=== PATIENT | female | born 1940 | race Caucasian/White ===

== ENCOUNTER 2016-09-30 15:36 | Inpatient (IN) | payer MEDICARE, MEDICAID ==
[~2016-09-30] VITALS: Ht 167.6 cm; Wt 66.0 kg
[~2016-09-30 15:36] MED LIST: CREST10T PO; HCTZ25 PO; INSU100C2 SQ; INSU100V5 SQ; NAP250 PO; POTA10TA PO; [UNRECOGNIZED DRUG - CODE] IV; [UNRECOGNIZED DRUG - CODE] IV
[2016-09-30 15:44] VITALS: BP 120/72; PULSE 110; RESP 20; O2SAT 97
--- NOTE | 2016-09-30 16:32 | ED.REPORT ---
HPI-General Illness Date of Service Sep 30, 2016 ED Provider: Chase Moctezuma MD This is a 76 year old female with a history of retroperitoneal B cell lymphoma sent to the emergency department from [facility] due to R leg weakness that began 2 weeks ago. Pt reports progressively worsening dysfunction of R leg. CT chest/abd/pelvis obtained today at [facility] demonstrated rapidly increasing size of malignant mass at left lower abdomen extending into the pelvis with mass effect on adjacent structures, thought to be impinging on "lumbar nerve" without tumor infiltration into spinal cord. Per Pt. she was thought to be in remission and stopped chemotherapy 4 months ago. Oncologist: Dr. Murillo. She has noticed increasingly large mass about the right lower abdomen over the last 2 months. She has not had any fecal or urinary incontinence. Nursing Notes Stated Complaint: CANT MOVE LEGS, SENT BY DOCTOR Chief Complaint: Extremity Trauma Nursing Notes Reviewed: Yes Allergies: Coded Allergies: erythromycin base (Verified Allergy, Intermediate, Nausea,Vomiting, ) quinine (Verified Allergy, Intermediate, syncope, 09/30/16) milk (Verified Allergy, Mild, congestion, 09/30/16) Scheduled Allopurinol (Allopurinol) 300 Mg Tablet 300 MG PO DAILY Citalopram (Citalopram) 10 Mg Tablet 10 MG PO DAILY Hydrochlorothiazide (Hydrochlorothiazide) 25 Mg Tablet 25 MG PO TIDWM 0830, 1200, 1600 TID confirmed w/ patient Insulin Glargine (Lantus U100 Insulin Vial) 100 Unit/Ml Vial 20 UNIT SUBQ DAILYWD 10 UNITS IN AM, 20 UNITS W/ DINNER (30 UNITS TOTAL) Insulin Glargine (Lantus U100 Insulin Vial) 100 Unit/Ml Vial 10 UNIT SUBQ QAM 10 UNITS IN AM, 20 UNITS W/ DINNER (30 UNITS TOTAL) Pantoprazole DR (Pantoprazole DR) 40 Mg Tablet.dr 40 MG PO QAM Rosuvastatin Calcium (Rosuvastatin Calcium) 10 Mg Tablet 10 MG PO HS Scheduled PRN Acetaminophen/Codeine 300-30mg (Acetaminophen/Codeine 300-30mg) 1 Each Tablet 1- 2 TABLET PO Q4H PRN PRN Pain Fluticasone Propionate (Flonase Allergy Relief) 50 Mcg/Actuation [place].susp 1 SPRAYS NS HS PRN PRN rhinorea Insulin Human Lispro (HumaLOG U100 Insulin Vial) 100 Unit/Ml Unit 2-8 UNIT SUBQ ACHS PRN PRN HYPERGLYCEMIA SLIDING SCALE Polyethylene Glycol 3350 (Miralax) 17 Gm Powd.pack 17 GM PO DAILY PRN PRN For Constipation General Time Seen by MD: 16:30 Chief Complaint Other Hx Obtained From: Patient Arrived By: Walk-in Sudden in Onset?: Yes Onset Occurred: More than a week ago... (2 weeks) Symptom Duration: Since onset Severity: Current: Moderate Pertinent Negative: Pt denies other symptoms Recent Healthcare: No recent doctor visit, No recent hospitalization Similar Sx Previous: No Past Medical History Past Medical History retroperitoneal B cell lymphoma Ambulatory Status Independent Review of Systems Full Review of Systems Constitutional: Denies: Chills, Fever Respiratory: Denies: Non-productive cough, Shortness of breath Cardiovascular: Denies: Chest pain Musculoskeletal: Reports: Extremity pain, Extremity swelling, Denies: Back pain, Neck pain Neurologic: Denies: Headache Complete sys rev & neg: except as marked. Physical Exam Vital Signs Vital Signs Date Time Temp Pulse Resp B/P Pulse Ox O2 Delivery O2 Flow Rate FiO2 09/30/16 17:55 36.4 88 14 112/71 95 Room Air 09/30/16 15:44 36.4 110 20 120/72 97 Room Air Initial VS: Reviewed Head / Eyes: Atraumatic, Normocephalic, PERRL ENT: Mucous membranes moist, Conjunctiva normal, No scleral icterus Neck: Supple, Non-tender, Full range of motion Cardiovascular: Regular rate & rhythm, Heart sounds normal, Intact distal pulses Skin: Warm, Dry, No cyanosis Neurologic: Alert, Oriented, Nonfocal Psychiatric: Mood/affect normal, Behavior normal, Normal thought content General/Constitutional: Awake, Alert Respiratory / Chest: Breath sounds NL, No respiratory distress, No rales, No rhonchi, No wheezing port in left anterior chest wall Abdomen: Non-tender large palpable solid abdominal mass occupying RUQ and RLQ Lower Extremity / Pelvis / MS: Vascular intact Significant weakness to flexion of R hip and flexion and extension of R knee. Dorsiflexion and plantar flexion are minimally reduced on R as compared to left Re-Eval/Medical Decision Med Decision/Clinical Course This is a 76 year old female with a history of retroperitoneal B cell lymphoma sent to the emergency department from [facility] due to R leg weakness that began 2 weeks ago. Pt reports progressively worsening dysfunction of R leg. CT chest/abd/pelvis obtained today at [facility] demonstrated rapidly increasing size of malignant mass at left lower abdomen extending into the pelvis with mass effect on adjacent structures, thought to be impinging on "lumbar nerve" without tumor infiltration into spinal cord. Per Pt. she was thought to be in remission and stopped chemotherapy 4 months ago. Oncologist: Dr. Murillo. She has noticed increasingly large mass about the right lower abdomen over the last 2 months. She has not had any fecal or urinary incontinence. Here in emergency department patient is afebrile stable vital signs and examination as above. Of note she has weakness in her right leg is neurovascularly intact otherwise. Given PRN zofran, dilauded, IV fluids Labs obtained earlier today at [facility]: Sodium 130 Potassium 3.2 Chloride 140 BUN 29 Creatinine 1.1 Calcium 13.4 Magnesium 1.6 Transaminases minimally elevated INR 1 WBC 10.6 Hct 29.2 I reviewed the patient's attending studies from earlier today [facility] confirming the above findings. Additionally had a long discussion with the oncologist on-call and reviewed the above findings. It is felt that the patient would benefit from palliative radiation to reduce mass effect on adjacent structures. The patient remained hemodynamically stable and in no apparent distress. She was admitted to the hospitalist service and consultation with oncology for further intervention and treatment. Consultation #1: Referral / Consult Name: Danny Timmons MD Consulted With: Hospitalist Call Returned at: 17:28 Landscaping Crew Leader: Accepts admit Consultation #2: Referral / Consult Name: Tapan Julio MD Call Returned at: 17:35 Landscaping Crew Leader: Agrees with eval, Agrees with plan Note: Oncologist Counseled Regarding: Diagnosis, Lab results, Need for follow-up, Need for admission Discharge & Departure Primary Impression: Hypercalcemia Additional Impressions: Mass of abdomen Abdominal location: unspecified location Qualified Code: R19.00 - Intra- abdominal and pelvic swelling, mass and lump, unspecified site Right leg weakness B-cell lymphoma B-cell lymphoma type: unspecified B-cell Lymphoma site: unspecified region Qualified Code: C85.10 - Unspecified B-cell lymphoma, unspecified site Disposition: ADMITTED TO HOSPITAL Discharge Condition All VS Reviewed: Yes Condition: Stable Referrals: Blaine Rizzo MD (PCP) Scribe Attestation Portions of this note were transcribed by Elvira Vincent. I, Dr. Moctezuma personally performed the history, physical exam and medical decision-making; I reviewed and confirmed the accuracy of the information in the transcribed note. Signed by: alannah Hernandez. 09/30/2016, 23:30. Chase Moctezuma MD Sep 30, 2016 16:32 ELVIRA VINCENT Sep 30, 2016 17:06
[2016-09-30] MEDS ORDERED: 0.9% Sodium Chloride 1,000 ML IV ONE (17:23)
[2016-09-30] MEDS ORDERED: HYDROmorphone 0.5 mg/0.5 mL iSecure Syringe IVPUSH PRN (17:25)
[2016-09-30] MEDS ORDERED: Ondansetron 2 mg/mL 2 mL Inj IVPUSH PRN ×2 (17:25→17:35)
[2016-09-30] MEDS ORDERED: Alum-Mag Hydrox-Simeth 30 mL Suspension PO PRN (17:35)
[2016-09-30 17:55] VITALS: BP 112/71; PULSE 88; RESP 14; O2SAT 95
[2016-09-30] MEDS ORDERED: HYDR25TA4 PO (17:58)
[2016-09-30] MEDS ORDERED: ALLO300T2 PO (17:58)
[2016-09-30] MEDS ORDERED: CITA10TA9 PO (17:58)
[2016-09-30 18:05] VITALS: BP 112/71; PULSE 88; RESP 14; O2SAT 95
[2016-09-30] MEDS ORDERED: INSU100V7 SUBQ ×2 (18:11)
[2016-09-30] MEDS ORDERED: PANT40TA3 PO (18:16)
[2016-09-30] MEDS ORDERED: ACET1TAB42 PO (18:19)
[2016-09-30] MEDS ORDERED: FLUT9.9S NS (18:19)
[2016-09-30] MEDS ORDERED: ROSU10TA24 PO (18:19)
[2016-09-30] MEDS ORDERED: INSLIS SUBQ (18:19)
[2016-09-30] MEDS ORDERED: POLY17PO6 PO (18:21)
[2016-09-30 18:23] VITALS: BP 149/71; PULSE 97; RESP 18; O2SAT 98
--- NOTE | 2016-09-30 18:26 | NUR ---
Admit Pt admitted to [facility] room 1012 at 1825 via stretcher. Pt was able to transfer to bed. Recommend using BSC with FWW instead of bathroom tonight d/t weakness. Pt denies pain. BRO. No chest pain. SOB. Right ankle swollen. Denies nausea. NS 100. RA. Oriented to room and call light. Care continues.
[2016-09-30] MEDS ORDERED: CITALOPRAM 10 MG PO SCH (19:40)
[2016-09-30] MEDS ORDERED: Fluticasone 0.05% 15 Spray/2 Gm 16 Gm Nasal Spray NASAL PRN (19:40)
[2016-09-30] MEDS ORDERED: Polyethylene Glycol (PEG) 17 Gm Powder PO PRN (19:40)
[2016-09-30 19:57] VITALS: BP 113/60; PULSE 97; RESP 18; O2SAT 98
[2016-09-30] MEDS ORDERED: Dexamethasone 10 mg/mL Inj IVPUSH ONE (20:00)
--- NOTE | 2016-09-30 20:20 | PCM.HPMED ---
Subjective Date of Service Sep 30, 2016 Primary Provider: Admitting Physician: Danny Timmons MD Primary Care Physician: Blaine Rizzo MD Attending Physician: Danny Timmons MD Chief Complaint: Lower extremity weakness, abdominal mass History of Present Illness: This is a 76 years old female with past medical history diabetes, hyperlipidemia, B-cell lymphoma diagnosed 2 years ago status post chemotherapy which completed 2 months ago. Patient said this morning she woke up and tried to walk to the bathroom and suddenly her LE gave up on her. She was taken to [facility] where a ct scan shows : rapidly increasing size of malignant mass at left lower abdomen extending into the pelvis with mass effect on adjacent structures, thought to be impinging on "lumbar nerve" with tumor infiltration into spinal cord. Patient was transported here and oncology was consulted by ER physician. Dr. Harrison received the patient in the morning for possible palliative radiation. Patient denied chest pain, shortness upper, fever chills, abdominal pain, nausea , vomiting. Allergies Coded Allergies: milk (Verified Allergy, Severe, congestion, 09/30/16) erythromycin base (Verified Allergy, Intermediate, Nausea,Vomiting, ) quinine (Verified Allergy, Intermediate, syncope, 01/18/13) Home Medications Hydrochlorothiazide-Expunged, Do Not Renew! (Hydrochlorothiazide-Expunged, Do Not Renew!) 25 Mg Tablet 25 MG PO BID perscribed tid, last filled 09/20 INSULIN LISPRO-Expunged Drug, Do Not Renew! (Humulog-Expunged Drug, Do Not Renew !) 100 Unit/1 Ml Vial 12 UNIT SQ TID Insulin Glargine-Expunged Drug, Do Not Renew! (Lantus-Expunged Drug, Do Not Renew!) 100 U/Ml Cartridge 80 U SQ BID Naproxen-Expunged Drug, Do Not Renew! (Naprosyn-Expunged Drug, Do Not Renew!) 250 Mg Tablet 250 MG PO PRN Piperacillin/Tazobactam Sod (Zosyn 3.375GM/50ML Premix) 3.375 Gm/50 Ml Soln 3.375 GM IV Q8 to continue for 6 weeks total Potassium Chl-Expunged Drug, Do Not Renew! (F-Kuu-Runbdpzf Drug, Do Not Renew!) 10 Meq Tablet.sa 10 MEQ PO DAILY Rosuvastatin-Expunged Drug, Do Not Renew! (Crestor-Expunged Drug, Do Not Renew! ) 10 Mg Tablet 10 MG PO DAILY VANCOMYCIN HCL-Expunged Drug, Do Not Renew! (VANCOMYCIN HCL-Expunged Drug, Do Not Renew!) 1,000 Mg Inj 1,250 MG IV Q24 to continue for 6 weeks total PMH retroperitoneal B cell lymphoma Surgical History None Family History Family history reviewed and is noncontributory to the present illness Social History Hx Alcohol Use: No Hx Substance Use: No Hx Tobacco Use: No Living Arrangement: with Family Exam Vital Signs Vital Sign - Last Date Time Temp Pulse Resp B/P Pulse Ox O2 Delivery O2 Flow Rate FiO2 09/30/16 18:23 36.4 97 18 149/71 98 Room Air Exam Gen./constitutional : Chronically appearing female, and the comfortably not in distress HEENT: Atraumatic, Normocephalic, PERRL, sclerae anicteric Mouth: Mucous membranes moist, no oral thrush Neck: Supple, Non-tender, Full range of motion, no cervical lymphadenopathy Chest: No chest wall tenderness, no deformity, normal respiratory efforts Lungs: Bilateral auscultation, no wheezing Cardiovascular: Regular rate & rhythm, Heart sounds normal, Intact distal pulses Abdomen: Non-tender, non-distended, palpable mass and the left lower quadrant and flank area Lower Extremity : No edema, no cyanosis, no calf tenderness Neuro : Bilateral lower extremity weakness,. Strength 3 out of 5 and left and 4 out of 5 right. Sensory is intact Skin : No rash, no ulcers Lab and Diagnostics Labs Pending X-Rays, CTs and MRIs CT [facility] CT chest/abd/ pelvis obtained today at [facility] demonstrated rapidly increasing size of malignant mass at left lower abdomen extending into the pelvis with mass effect on adjacent structures, thought to be impinging on "lumbar nerve" with tumor infiltration into spinal cord Assessment & Plan 1. B cell lymphoma 2. IDDM type II 3. Hypercholesteremia 4. Lower extremity weakness . [facility] due to finding of large intra-abdominal mass and lower extremity weakness. Ct scan shows : rapidly increasing size of malignant mass at left lower abdomen extending into the pelvis with mass effect on adjacent structures, thought to be impinging on "lumbar nerve" with tumor infiltration into spinal cord. Oncology was consulted Dr. Harrison who will see the patient in consultation for possible radiation. She has a history of large B-cell lymphoma and completed chemotherapy 4 months ago Start IV Decadron 40 gm x 1 until seen by oncology Diabetic diet. Sliding scale insulin with coverage and home basal insulin regimen Percocet for pain. Home medication reviewed reviewed and resumed . Lovenox for DVT prophylaxis . Consider palliative care consult CBC, CMP in am Pain Evaluation: Adequate Pain Control VTE Prophylaxis: Sub-Q Enoxaparin Resuscitation Status: CPR: Attempt Resuscitation Time spent 55 minutes Danny Timmons MD Sep 30, 2016 20:20
[2016-09-30] MEDS ORDERED: SODIUM CHLORIDE PHA MIX 0.9% IV ONE (20:30)
[2016-09-30] MEDS ORDERED: DEXAMETHASONE IV ONE (20:30)
--- NOTE | 2016-09-30 20:36 | NUR ---
Admit nurse note Admission assessment completed. Pt. denies complaints at the present. States she had sudden inability to use her legs today. States she lives with her , a friend and her grandson and his friend and feels comfortably safe at home. She states she uses a walker to get around but has had falls. Nonslip socks provided and pt. oriented to room, call zurita and fall precautions. Pt. declines advance directives after a thorough explanation of their purpose. Med rec completed by ED pharmacist. Allergies verified and sticker placed accordingly. Report given to Tata Villafuerte.
[2016-09-30] MEDS ORDERED: Insulin GLARgine 100 Unit/mL Syringe SUBQ SCH (21:00)
[2016-09-30] MEDS: Pantoprazole 40 mg ER24 Tablet PO SCH ×2 (23:30→23:35)
[2016-09-30] MEDS: Insulin Human REGular 300 Unit/3 mL Inj SUBQ SCH (23:31)
[2016-10-01] VITALS: BP 132/65; PULSE 90; RESP 20; O2SAT 98
[2016-10-01] MEDS: Insulin Human REGular 300 Unit/3 mL Inj SUBQ SCH ×5 (02:30→22:00)
[2016-10-01 05:03] VITALS: BP 132/65; PULSE 88; RESP 18; O2SAT 97
--- NOTE | 2016-10-01 06:14 | NUR ---
Ambulation Patient no longer experiencing weakness in right leg. Was able to ambulate with SBA and FWW.
[2016-10-01 06:19] LABS: Mean Corpuscular Hemoglobin 31.5 pg (27.0-35.0); Mean Corpuscular Volume 99.3 fL (81-100)
[2016-10-01 07:21] VITALS: BP 118/66; PULSE 89; RESP 16; O2SAT 98
[2016-10-01] MEDS ORDERED: Influenza (Adult) Vaccine 0.5 mL Syringe IM ONE (08:30)
[2016-10-01] MEDS: 0.9% Sodium Chloride 250 ML IV SCH (11:17)
[2016-10-01] MEDS ORDERED: HepLOK Flush 100 unit/mL 5 mL Inj IVFLUSH PRN (11:20)
[2016-10-01] MEDS ORDERED: Sodium Chloride LOK Flush 10 mL Syringe IVFLUSH PRN ×2 (11:20)
[2016-10-01 12:16] VITALS: BP 114/60; PULSE 86; RESP 16; O2SAT 98
[2016-10-01] MEDS ORDERED: MAGN200T PO (12:43)
[2016-10-01] MEDS ORDERED: HYDR-4003 PO (12:43)
[2016-10-01] MEDS ORDERED: PRE20 PO (12:43)
[2016-10-01] MEDS ORDERED: FLUT16SP NS (12:43)
[2016-10-01] MEDS ORDERED: ONDA-53 SL (12:43)
[2016-10-01] MEDS ORDERED: MAGN400T4 PO (12:43)
--- NOTE | 2016-10-01 13:42 | NUR ---
spiritual care: pt request/ placement concerns pt shared details of her change in symptoms in terms of her alberto. Pt shared her lifelong alberto, active prayerlife and ways she has lived out her values and spirituality. Pt shared personal history including landscape, visual arts and nursing. Pt shared her concern about snf placement as she considered the things she cherishes and has in place for continued home healing including spouse and others to aid her. pt engaged in prayer and accepted small table top prayer card.
[2016-10-01 16:21] VITALS: BP 126/66; PULSE 81; RESP 18; O2SAT 99
[2016-10-01] MEDS ORDERED: Dexamethasone 4 mg/mL Inj IVPUSH ONE (16:30)
--- NOTE | 2016-10-01 16:36 | NUR ---
Social Work Initial Assessment: SW met with patient at bedside to discuss discharge plan. Patient resides with in a 2 story home in [place]. Patient pharmacy of choice as [facility]. Patient has no previous SNF history. Patient has HHC history in past with nivia C patient believes. Patient uses a walker at home. Patient PCP as MD Rizzo. Patient resides with Sandeep, who provides support and care with needs at home. Patient payer as [employer] and [facility]. PSW will continue to follow pending therapy eval and clinical course. SW to follow for possible r/o of HHC at discharge. SW to follow. PLAN: Home with via POV. Possible r/o HHC at discharge Chai CLINTON
[2016-10-01] MEDS ORDERED: Insulin GLARgine 100 Unit/mL Syringe SUBQ SCH (17:30)
--- NOTE | 2016-10-01 18:12 | PROG NOTE ---
[address] [address] PROGRESS NOTE PATIENT: PIPO TURNER : 1940 MR#: [id number] ADMIT: 09/30/2016 JOB ID: [id number] DATE: 10/01/2016 INPATIENT MEDICAL ONCOLOGY PROGRESS REPORT: DIAGNOSES: 1. 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 2. Hypercalcemia. HISTORY OF PRESENT ILLNESS: The patient is a very pleasant 76-year-old woman who is under care of Dr. Murillo at [facility] for diffuse large B-cell lymphoma. Dr. Murillo is currently out of town. The patient initially presented in March 2016 with marked symptoms including unintentional weight loss, fever, nocturnal sweats, anorexia, nausea, and lower abdominal pain. CT scan demonstrated large right retroperitoneal soft tissue mass with mass effect and anterior displacement of the right kidney. She had auto tumor lysis syndrome. A needle core biopsy was obtained which showed atypical lymphoid infiltrate, highly suspicious for involvement by a CD10 positive B-cell lymphoma. The lymphocytes were a mixture of typical small lymphocyte with an abnormal population of larger lymphocytes with enlarged nuclei, particular chromatin, and one or more nucleoli. Mitoses were rarely seen and areas of necrosis were not present. There was no nodular pattern. Ki-67 index was low to intermediate, up to 30%. Slides were reviewed at [facility] hematopathology, but exact subclassification was not offered. The patient received six cycles of R-CHOP chemotherapy, to which she had a partial response. The last chemotherapy was given on July 19, 2016. Her CT scan on September 13 demonstrated interval progression of the mass as compared to prior study June 2016, and most recent CT scan yesterday shows rapid progression since September 13. The mass now measures 12.4 x 10.2 x 13.3 cm with increased mass effect on adjacent structures, intra- and retroperitoneal, and appears to impinge upon the lumbar nerve roots. There is tumor infiltration into the spinal canal. The patient self-referred to [facility] ED yesterday. She is a little confused about details. Apparently she was unable to walk at home and called her who took her to the ER. She says when she was at the ER it was her right leg that was not moving. She also was in pain. The above-mentioned CT scan was obtained and she was transferred to [facility] ER. Here she was given one dose of Decadron 40 mg and now she is able to walk again. Her calcium this morning was 12.9. Currently, she says "I am healed." She got up and showed me that she can walk, but is unsteady. She is slightly confused. She denies any pain. OBJECTIVE: Elderly woman, in good spirits and in no discomfort. Blood pressure 126/66, heart rate 81, temperature 36.8, O2 saturation 99% on room air. LABORATORY: As of this morning: Calcium 12.9, glucose 187, creatinine 1.27. WBC count 13,300, hemoglobin 9.6, platelet count normal. Uric acid is 5.3. IMPRESSION AND PLAN: This patient has an aggressive B-cell non-Hodgkin's lymphoma that was not exactly subclassified and was treated with R-CHOP chemotherapy, to which she only had a temporary partial response and quickly progressed after completion of therapy. She was seen by Dr. Howard recently and was in the process of getting insurance approval and PET-CT for radiation therapy planning, but is admitted to hospital with rapid progression in size of mass associated with lumbar radiculopathy. Her symptoms have improved after one dose of dexamethasone 40 mg IV. I had a long conversation with the patient, Dr. Kinney, Dr. Vallecillo, and Dr. Santos today. My recommendations are the followin. Repeat biopsy of the mass. This can be done today or on Tuesday at [facility] and flow cytometry will be done. 2. Continue dexamethasone at 4 mg t.i.d. 3. MRI of lumbar spine with and without contrast. 4. Dr. Howard will be back in the office on Tuesday and will expedite radiotherapy. 5. I will let Dr. Murillo know of her admission and he will follow up with her next week. 6. Fluconazole 100 mg p.o. once daily for fungal prophylaxis. 7. Glycemic control is needed for this diabetic woman when she is placed on dexamethasone. 8. For hypercalcemia, monitor daily and for now treat with IV hydration and dexamethasone. Once renal function improves, if her serum calcium remains persistently over 12, one dose of Zometa can be given.
--- NOTE | 2016-10-01 18:44 | NUR ---
Activity Pt states "I am healed and I need to prove that I can walk on my own." Encouraged ambulation w/ staff. SBA w/ FWW throughout hallways several times today. [place] alarm on, call light w/in reach and used appropriately, bed down and locked. No complaints of pain
[2016-10-01 20:30] VITALS: BP 121/58; PULSE 79; RESP 16; O2SAT 96
[2016-10-01] MEDS: Insulin GLARgine 100 Unit/mL Syringe SUBQ SCH (21:39)
--- NOTE | 2016-10-01 22:27 | DRSVH ---
PROCEDURE: MRI LUMBAR SPINE WITH AND WITHOUT CONTRAST ([id number]) INDICATIONS: Tumor with spinal cord impingement TECHNIQUE: Noncontrast sagittal T1 spin echo and T2 fast spin echo, sagittal STIR, axial T1 and T2 fast spin ech o through the lumbar spine. In cases with scoliosis, additional coronal T2 fast spin echo may be per formed. After the administration of contrast, sagittal and axial T1 spin echo with fat saturation th rough the lumbar spine. COMPARISON: [facility], CT, CHEST/ABD/PEL WITH CONTRAST, 09/30/2016, 11:27. FINDINGS: Image quality: Excellent. Alignment and curvature: There is a prominent lumbar lordosis. There is a minimal anterolisthesis of L4 on L5. There is diffuse mild disc degenerative disease at all levels. No central canal stenosis is seen. Marrow: Marrow is of normal overall signal. No acute vertebral body compression fractures. No susp icious marrow enhancement. Spinal cord: Conus medullaris terminates at the L1. level. Visualized spinal cord demonstrates norm al signal, without suspicious enhancement. Paraspinous soft tissues: No paravertebral masses or abnormal enhancement. A large retroperitoneal tumor abuts the psoas muscle but does not extend through it to the foramina a t any level. The interface of the tumor the psoas is seen on the MRI but the size of the tumor is bet ter appreciated on CT scan. No evidence for any marrow involvement or fracture is seen. Severe facet degenerative changes at L4-5 and L5-S1 are present. IMPRESSION: No involvement of the central canal or foramina by the patient's tumor in the right retro peritoneum. Dictated by: Blaine Aguila M.D. on 10/01/2016 at 22:16 Approved by: Blaine Aguila M.D. on 10/01/2016 at 22:26
--- NOTE | 2016-10-01 23:08 | PCM.PNMED ---
Subjective Date of Service Oct 01, 2016 Subjective Patient is feeling better today and she can move her legs better. She is in good spirits. Exam Vital Signs Vital Sign - Last Date Time Temp Pulse Resp B/P Pulse Ox O2 Delivery O2 Flow Rate FiO2 10/01/16 16:21 36.8 81 18 126/66 99 Room Air Intake and Output 09/30/16 09/30/16 10/01/16 Cumulative From/Thru 15:00 23:00 07:00 09/30/16 15:44 - 10/01/16 06:43 Intake Total 999 ml 986 ml 1985 ml Output Total 250 ml 250 ml Balance 999 ml 736 ml 1735 ml Intake Oral 240 ml 240 ml IV Total 999 ml 746 ml 1745 ml Output Urine Total 250 ml 250 ml Exam General: Patient is in no apparent distress. HEENT: Head is atraumatic and normocephalic. Eyes: Pupils are equally round and reactive to light and accommodation. Extraocular muscles are intact. Sclera are white, anicteric. Subconjunctival mucosa is pink. Ears and nose are unremarkable. Oropharynx: There is no mucosal lesions, there is no thrush, there is no pharyngitis. Neck: Is supple, there are no nodes, or masses or tenderness. Chest: Is clear to auscultation and percussion. There are no rales, rhonchi, wheezes or rubs. Heart: Rate, rhythm is regular. There is no murmur, rub or gallop. Abdomen: Good bowel sounds are present. Abdomen is soft, nontender, no organomegaly or masses were appreciated. Extremities: Are symmetrical except for swelling in the area of the right lateral malleolus which is chronic since previous trauma and fracture. The extremities are well perfused. There is no edema, there is no cellulitis, no rash. Neurologic: There are no focal neurological deficits. Cranial nerves II through XII are intact. There are no sensory or motor deficits. Psychiatric: Patients mood is calm and shows no sign of agitation. Genital: Deferred Rectal: Deferred Lab and Diagnostics Result Diagram: 10/01/16 0540 10/01/16 0540 X-Rays, CTs and MRIs CT scan of abdomen and pelvic done at [facility] showed: CT chest/abd/ pelvis obtained today at [facility] demonstrated rapidly increasing size of malignant mass at left lower abdomen extending into the pelvis with mass effect on adjacent structures, thought to be impinging on "lumbar nerve" with tumor infiltration into spinal cord PROCEDURE: MRI LUMBAR SPINE WITH AND WITHOUT CONTRAST ([id number]) INDICATIONS: Tumor with spinal cord impingement TECHNIQUE: Noncontrast sagittal T1 spin echo and T2 fast spin echo, sagittal STIR, axial T1 and T2 fast spin echo through the lumbar spine. In cases with scoliosis, additional coronal T2 fast spin echo may be performed. After the administration of contrast, sagittal and axial T1 spin echo with fat saturation through the lumbar spine. COMPARISON: [facility], CT, CHEST/ABD/PEL WITH CONTRAST, 09/30/2016, 11:27. FINDINGS: Image quality: Excellent. Alignment and curvature: There is a prominent lumbar lordosis. There is a minimal anterolisthesis of L4 on L5. There is diffuse mild disc degenerative disease at all levels. No central canal stenosis is seen. Marrow: Marrow is of normal overall signal. No acute vertebral body compression fractures. No suspicious marrow enhancement. Spinal cord: Conus medullaris terminates at the L1. level. Visualized spinal cord demonstrates normal signal, without suspicious enhancement. Paraspinous soft tissues: No paravertebral masses or abnormal enhancement. A large retroperitoneal tumor abuts the psoas muscle but does not extend through it to the foramina at any level. The interface of the tumor the psoas is seen on the MRI but the size of the tumor is better appreciated on CT scan. No evidence for any marrow involvement or fracture is seen. Severe facet degenerative changes at L4-5 and L5-S1 are present. IMPRESSION: No involvement of the central canal or foramina by the patient's tumor in the right retroperitoneum. Dictated by: Blaine Aguila M.D. on 10/01/2016 at 22:16 Approved by: Blaine Aguila M.D. on 10/01/2016 at 22:26 Assessment & Plan The patient is a 76-year-old pleasant white female transferred from [facility] ER to the [facility] ER due to finding of large intra- abdominal mass and lower extremity weakness. Ct scan at [facility] showed a rapidly increasing size of a malignant mass at left lower abdomen extending into the pelvis with mass effect on adjacent structures, thought to be impinging on "lumbar nerve" with tumor infiltration into spinal cord. The patient was admitted to the hospitalist service here at [facility] for further evaluation and treatment. B cell lymphoma -- With apparent recurrence with a rapidly enlarging mass -- Radiation oncology has been consulted -- Oncology has been consulted and will follow their recommendations. Patient seen with an case discussed with -- Will continue IV Decadron 4 mg IV every 8 hours -- We will check daily uric acid. The patient is on allopurinol -- Oncology recommends biopsy of the mass this was ordered for Tuesday Hypercalcemia secondary to above -- Continue IV hydration -- Continue IV Decadron IDDM type II -- A diabetic diet has been ordered -- Sliding scale insulin ordered before meals and at bedtime -- Continue Lantus insulin -- Watch closely while on IV Decadron Hypercholesteremia -- Continue current home medications Lower extremity weakness -- Improved with IV Decadron, therefore will continue -- Physical therapy to be consulted to continue to evaluate and treat patient . Percocet for pain. Home medication reviewed reviewed and resumed . Lovenox for DVT prophylaxis . Continue to check daily CBC, CMP and magnesium Disposition: Patient likely to remain hospitalized for several days and the evaluation the treatment of the above problems. Pain Evaluation: Adequate Pain Control VTE Prophylaxis: Sub-Q Heparin (Unfractionated) VTE Mechanical Devices: Intermittant Pneumatic CD Resuscitation Status: CPR: Attempt Resuscitation Richard Santos MD Oct 01, 2016 23:08
[2016-10-02] MEDS: Heparin 5,000 Unit/mL Inj SUBQ SCH ×4 (00:30→17:02)
--- NOTE | 2016-10-02 02:24 | NUR ---
Activity Patient able to ambulate with SBA and FWW to BR x2 at this time. States she has been "Healed" and is determined to prove it but cooperating by utilizing call light. C/O of pain in right foot digits due to socks being "Too tight" This nurse adjusted socks loosely over toes, in-addition draped blankets over end board of bed, patient satisfied with intervention. Denies CP, SOB, and abdominal pain at this time.
[2016-10-02 06:00] VITALS: BP 134/66; PULSE 71; RESP 16; O2SAT 97
[2016-10-02 06:11] LABS: BASOPHILS % (AUTO) 0.1 % (0-3); EOSINOPHILS % (AUTO) 0 % (0-5); MONOCYTES % (AUTO) 5.7 % (4-12); Mean Corpuscular Volume 96.4 fL (81-100); NEUTROPHILS % (AUTO) 77.7 % (40-74); Platelet Count 210 bil/L (150-400)
[2016-10-02 06:26] LABS: Magnesium 1.7 mg/dL (1.6-2.6); Phosphorus 4.3 mg/dL (2.5-4.9)
[2016-10-02] MEDS: Insulin Human REGular 300 Unit/3 mL Inj SUBQ SCH ×4 (07:30→21:50)
[2016-10-02] MEDS ORDERED: Magnesium Sulf 2 Gm/50mL Water 2 GM in IV Premix 1 EACH IV ONE (09:25)
[2016-10-02] MEDS: Pantoprazole 40 mg ER24 Tablet PO SCH (09:59)
[2016-10-02] MEDS: Insulin GLARgine 100 Unit/mL Syringe SUBQ SCH ×2 (09:59→17:37)
[2016-10-02 10:03] VITALS: BP 137/71; PULSE 78; RESP 16; O2SAT 98
--- NOTE | 2016-10-02 10:50 | NUR ---
KRISTOFER signed. Leigha Gonzalez [employer] ADMINISTRATOR
[2016-10-02] MEDS: 0.9% Sodium Chloride 250 ML IV SCH (11:17)
[2016-10-02 13:14] VITALS: BP 127/56; PULSE 72; RESP 16; O2SAT 100
--- NOTE | 2016-10-02 18:24 | NUR ---
Fall risk P: Pt forgets limitations and believes she can walk safely and independently. Pt gets up out of chair and bed without calling for assistance. I: [place] alarm in place for chair and bed. Hourly rounding and toileting offered. E: Pt only attempting to get OOB x1 without staff present today. No falls.
--- NOTE | 2016-10-02 18:43 | PCM.PNMED ---
Subjective Date of Service Oct 02, 2016 Subjective The patient remained somewhat euphoric on high-dose IV Decadron. She is very happy that she was able to ambulate in the hallway today. She has no new complaints. Exam Vital Signs Vital Sign - Last Date Time Temp Pulse Resp B/P Pulse Ox O2 Delivery O2 Flow Rate FiO2 10/02/16 13:14 36.6 72 16 127/56 100 Room Air Intake and Output 10/01/16 10/01/16 10/02/16 Cumulative From/Thru 14:59 22:59 06:59 09/30/16 15:44 - 10/02/16 06:19 Intake Total 1243 ml 206 ml 3434 ml Output Total 250 ml 315 ml 815 ml Balance 993 ml -109 ml 2619 ml Intake Oral 400 ml 100 ml 740 ml IV Total 843 ml 106 ml 2694 ml Output Urine Total 250 ml 315 ml 815 ml # Voids 2 2 # Bowel Movements 0 0 Exam General: Patient is in no apparent distress. HEENT: Head is atraumatic and normocephalic. Eyes: Pupils are equally round and reactive to light and accommodation. Extraocular muscles are intact. Sclera are white, anicteric. Subconjunctival mucosa is pink. Ears and nose are unremarkable. Oropharynx: There is no mucosal lesions, there is no thrush, there is no pharyngitis. Neck: Is supple, there are no nodes, or masses or tenderness. Chest: Is clear to auscultation and percussion. There are no rales, rhonchi, wheezes or rubs. Heart: Rate, rhythm is regular. There is no murmur, rub or gallop. Abdomen: Good bowel sounds are present. Abdomen is soft, nontender. There is a large mass palpable in the right upper quadrant to the right flank area. This mass is firm and nontender. Extremities: Are symmetrical except for swelling in the area of the right lateral malleolus which is chronic since previous trauma and fracture. The extremities are well perfused. There is no edema, there is no cellulitis, no rash. Neurologic: There are no focal neurological deficits. Cranial nerves II through XII are intact. There are no sensory or motor deficits. Psychiatric: Patients mood is calm and shows no sign of agitation. She actually appears euphoric, likely secondary to the high-dose IV Decadron. Genital: Deferred Rectal: Deferred Lab and Diagnostics Result Diagram: 10/02/16 0540 10/02/16 0540 X-Rays, CTs and MRIs CT scan of abdomen and pelvic done at [facility] showed: CT chest/abd/ pelvis obtained today at [facility] demonstrated rapidly increasing size of malignant mass at left lower abdomen extending into the pelvis with mass effect on adjacent structures, thought to be impinging on "lumbar nerve" with tumor infiltration into spinal cord PROCEDURE: MRI LUMBAR SPINE WITH AND WITHOUT CONTRAST ([id number]) INDICATIONS: Tumor with spinal cord impingement TECHNIQUE: Noncontrast sagittal T1 spin echo and T2 fast spin echo, sagittal STIR, axial T1 and T2 fast spin echo through the lumbar spine. In cases with scoliosis, additional coronal T2 fast spin echo may be performed. After the administration of contrast, sagittal and axial T1 spin echo with fat saturation through the lumbar spine. COMPARISON: [facility], CT, CHEST/ABD/PEL WITH CONTRAST, 09/30/2016, 11:27. FINDINGS: Image quality: Excellent. Alignment and curvature: There is a prominent lumbar lordosis. There is a minimal anterolisthesis of L4 on L5. There is diffuse mild disc degenerative disease at all levels. No central canal stenosis is seen. Marrow: Marrow is of normal overall signal. No acute vertebral body compression fractures. No suspicious marrow enhancement. Spinal cord: Conus medullaris terminates at the L1. level. Visualized spinal cord demonstrates normal signal, without suspicious enhancement. Paraspinous soft tissues: No paravertebral masses or abnormal enhancement. A large retroperitoneal tumor abuts the psoas muscle but does not extend through it to the foramina at any level. The interface of the tumor the psoas is seen on the MRI but the size of the tumor is better appreciated on CT scan. No evidence for any marrow involvement or fracture is seen. Severe facet degenerative changes at L4-5 and L5-S1 are present. IMPRESSION: No involvement of the central canal or foramina by the patient's tumor in the right retroperitoneum. Dictated by: Blaine Aguila M.D. on 10/01/2016 at 22:16 Approved by: Blaine Aguila M.D. on 10/01/2016 at 22:26 Assessment & Plan The patient is a 76-year-old pleasant white female transferred from [facility] ER to the [facility] ER due to finding of large intra- abdominal mass and lower extremity weakness. Ct scan at [facility] showed a rapidly increasing size of a malignant mass at left lower abdomen extending into the pelvis with mass effect on adjacent structures, thought to be impinging on "lumbar nerve" with tumor infiltration into spinal cord. The patient was admitted to the hospitalist service here at [facility] for further evaluation and treatment. History of B cell lymphoma -- With apparent recurrence with a rapidly enlarging mass -- Radiation oncology has been consulted -- Oncology has been consulted and will follow their recommendations. Patient seen with an case discussed with -- Will continue IV Decadron 4 mg IV every 8 hours -- We will check daily uric acid. The patient is on allopurinol -- Oncology recommends biopsy of the mass. This was ordered for Tuesday Hypercalcemia secondary to above -- Continue IV hydration -- Continue IV Decadron -- We will follow calcium levels closely IDDM type II -- A diabetic diet has been ordered -- Sliding scale insulin ordered before meals and at bedtime -- Continue Lantus insulin -- Watch closely while on IV Decadron Hypercholesteremia -- Continue current home medications Lower extremity weakness -- Improved with IV Decadron, therefore will continue -- Physical therapy to be consulted to continue to evaluate and treat patient . Percocet for pain. Home medication reviewed reviewed and resumed . Lovenox for DVT prophylaxis . Continue to check daily CBC, CMP and magnesium and calcium. Disposition: Patient likely to remain hospitalized for several days and the evaluation the treatment of the above problems. Pain Evaluation: Adequate Pain Control GI Prophylaxis: Proton Pump Inhibitor VTE Prophylaxis: Sub-Q Heparin (Unfractionated) VTE Mechanical Devices: Intermittant Pneumatic CD Resuscitation Status: CPR: Attempt Resuscitation Richard Santos MD Oct 02, 2016 18:43
[2016-10-02 21:00] VITALS: BP 151/67; PULSE 75; RESP 16; O2SAT 95
[2016-10-03] MEDS: Heparin 5,000 Unit/mL Inj SUBQ SCH ×3 (01:18→17:05)
[2016-10-03 03:43] LABS: BASOPHILS % (AUTO) 0.1 % (0-3); EOSINOPHILS % (AUTO) 0.2 % (0-5); MONOCYTES % (AUTO) 8.9 % (4-12); Mean Corpuscular Hemoglobin 31.6 pg (27.0-35.0); Mean Corpuscular Volume 99.3 fL (81-100); NEUTROPHILS % (AUTO) 73.4 % (40-74); Platelet Count 221 bil/L (150-400)
--- NOTE | 2016-10-03 03:55 | NUR ---
Activity Patient compliant with call light through out shift. Able to tolerate ambulation from bed to bathroom and back with one person stand by assist. Alert and able to make needs known, denies pain at this time. Bed in low position, [place] alarm on, call light within reach, intentional rounding.
[2016-10-03 04:45] LABS: Magnesium 2.1 mg/dL (1.6-2.6); Phosphorus 3.7 mg/dL (2.5-4.9)
[2016-10-03 05:28] VITALS: BP 158/75; PULSE 71; RESP 16; O2SAT 96
[2016-10-03] MEDS: Pantoprazole 40 mg ER24 Tablet PO SCH (08:40)
[2016-10-03] MEDS: Insulin GLARgine 100 Unit/mL Syringe SUBQ SCH ×2 (08:41→17:22)
[2016-10-03] MEDS: Insulin Human REGular 300 Unit/3 mL Inj SUBQ SCH ×4 (08:44→22:00)
[2016-10-03] MEDS ORDERED: Sodium Chloride 44 mL Nasal Drops NASAL PRN (10:15)
[2016-10-03] MEDS: 0.9% NaCl + KCl 20 mEq/L 1,000 ML IV SCH ×2 (10:47→20:20)
[2016-10-03 13:22] VITALS: BP 138/65; PULSE 66; RESP 16; O2SAT 99
[2016-10-03] MEDS: Codeine-APAP 30-300 mg Tablet PO PRN (16:31)
--- NOTE | 2016-10-03 19:06 | PCM.PNMED ---
Subjective Date of Service Oct 03, 2016 Subjective Patient is complaining of some leg discomfort again today. Otherwise she remains in very good spirits. Exam Vital Signs Vital Sign - Last Date Time Temp Pulse Resp B/P Pulse Ox O2 Delivery O2 Flow Rate FiO2 10/03/16 13:22 36.5 66 16 138/65 99 Room Air Intake and Output 10/02/16 10/02/16 10/03/16 Cumulative From/Thru 15:00 23:00 07:00 09/30/16 15:44 - 10/03/16 06:01 Intake Total 1621 ml 228 ml 5283 ml Output Total 700 ml 600 ml 2115 ml Balance 921 ml -372 ml 3168 ml Intake Oral 1461 ml 100 ml 2301 ml IV Total 160 ml 128 ml 2982 ml Output Urine Total 700 ml 600 ml 2115 ml # Voids 2 # Bowel Movements 0 3 3 Exam General: Patient is in no apparent distress. She is sitting up in the bedside chair. HEENT: Head is atraumatic and normocephalic. Eyes: Pupils are equally round and reactive to light and accommodation. Extraocular muscles are intact. Sclera are white, anicteric. Subconjunctival mucosa is pink. Ears and nose are unremarkable. Oropharynx: There is no mucosal lesions, there is no thrush, there is no pharyngitis. Neck: Is supple, there are no nodes, or masses or tenderness. Chest: Is clear to auscultation and percussion. There are no rales, rhonchi, wheezes or rubs. Heart: Rate, rhythm is regular. There is no new murmur, rub or gallop. Abdomen: Good bowel sounds are present. Abdomen is soft, nontender. There remains a large mass palpable in the right upper quadrant to the right flank area. This mass is firm and nontender. Extremities: Are symmetrical except for swelling in the area of the right lateral malleolus which is chronic since previous trauma and fracture. The extremities are well perfused. There is no edema, there is no cellulitis, no rash. Neurologic: There are no focal neurological deficits. Cranial nerves II through XII are intact. There are no sensory or motor deficits, at the time of my exam. Psychiatric: Patients mood is calm and shows no sign of agitation. She actually appears euphoric, likely secondary to the high-dose IV Decadron. Genital: Deferred Rectal: Deferred Lab and Diagnostics Result Diagram: 10/03/1632910/03/16329 Microbiology Name: PIPO TURNER Age/Sex: 76/F Attend Dr: Danny Timmons MD Acct: [id number] Unit: [id number] Status: AD[place] [facility] [place] Re09/30/[place] Disch: Specimen: [id number] Collected: 10/03/16 Status: RES Req#: [id number] Received: 10/03/16123 Source: SPUTUM EXP Sp Desc : Subm Dr: Richard Santos MD Ordered: GRAM SPT REFLEX, SPUTUM CULTURE Comments: Collected by Nurse/Unit? Y/N Y Procedure Result Verified Site Microbiology CRISTINA CULT SPUTUM GS Final 10/03/16-1252 SPT GRAM STAIN FEW POLYS RARE EPITHELIAL CELLS RARE MIXED NORMAL ANALI This Spec is of good Quality and acceptable for Cult X-Rays, CTs and MRIs CT scan of abdomen and pelvic done at [facility] showed: CT chest/abd/ pelvis obtained today at [facility] demonstrated rapidly increasing size of malignant mass at left lower abdomen extending into the pelvis with mass effect on adjacent structures, thought to be impinging on "lumbar nerve" with tumor infiltration into spinal cord PROCEDURE: MRI LUMBAR SPINE WITH AND WITHOUT CONTRAST ([id number]) INDICATIONS: Tumor with spinal cord impingement TECHNIQUE: Noncontrast sagittal T1 spin echo and T2 fast spin echo, sagittal STIR, axial T1 and T2 fast spin echo through the lumbar spine. In cases with scoliosis, additional coronal T2 fast spin echo may be performed. After the administration of contrast, sagittal and axial T1 spin echo with fat saturation through the lumbar spine. COMPARISON: [facility], CT, CHEST/ABD/PEL WITH CONTRAST, 09/30/2016, 11:27. FINDINGS: Image quality: Excellent. Alignment and curvature: There is a prominent lumbar lordosis. There is a minimal anterolisthesis of L4 on L5. There is diffuse mild disc degenerative disease at all levels. No central canal stenosis is seen. Marrow: Marrow is of normal overall signal. No acute vertebral body compression fractures. No suspicious marrow enhancement. Spinal cord: Conus medullaris terminates at the L1. level. Visualized spinal cord demonstrates normal signal, without suspicious enhancement. Paraspinous soft tissues: No paravertebral masses or abnormal enhancement. A large retroperitoneal tumor abuts the psoas muscle but does not extend through it to the foramina at any level. The interface of the tumor the psoas is seen on the MRI but the size of the tumor is better appreciated on CT scan. No evidence for any marrow involvement or fracture is seen. Severe facet degenerative changes at L4-5 and L5-S1 are present. IMPRESSION: No involvement of the central canal or foramina by the patient's tumor in the right retroperitoneum. Dictated by: Blaine Aguila M.D. on 10/01/2016 at 22:16 Approved by: Blaine Aguila M.D. on 10/01/2016 at 22:26 Assessment & Plan The patient is a 76-year-old pleasant white female transferred from [facility] ER to the [facility] ER due to finding of large intra- abdominal mass and lower extremity weakness. Ct scan at [facility] showed a rapidly increasing size of a malignant mass at left lower abdomen extending into the pelvis with mass effect on adjacent structures, thought to be impinging on "lumbar nerve" with tumor infiltration into spinal cord. The patient was admitted to the hospitalist service here at [facility] for further evaluation and treatment. History of B cell lymphoma -- With apparent recurrence with a rapidly enlarging mass as seen on CT scan and MRI -- Radiation oncology has been consulted -- Oncology has been consulted and will follow their recommendations. Patient seen with an case discussed with -- Will continue IV Decadron 4 mg IV every 8 hours -- We will check daily uric acid. The patient is on allopurinol -- Oncology recommends biopsy of the mass. This was ordered for Tuesday. Flow cytometry has been ordered. Hypercalcemia secondary to above -- Continue IV hydration -- Continue IV Decadron -- We will follow calcium levels closely -- Further treatment as recommended by oncology IDDM type II -- A diabetic diet has been ordered -- Sliding scale insulin ordered before meals and at bedtime -- Continue Lantus insulin -- Watch closely while on IV Decadron Hypercholesteremia -- Continue current home medications Lower extremity weakness -- Improved with IV Decadron, therefore will continue -- Physical therapy to be consulted to continue to evaluate and treat patient . -- Further treatment as recommended by oncology Percocet for pain. Home medication reviewed reviewed and resumed . Lovenox for DVT prophylaxis . Continue to check daily CBC, CMP and magnesium and calcium. Disposition: Patient likely to remain hospitalized for several days and the evaluation the treatment of the above problems. Pain Evaluation: Adequate Pain Control GI Prophylaxis: Proton Pump Inhibitor VTE Prophylaxis: Sub-Q Heparin (Unfractionated) VTE Mechanical Devices: Intermittant Pneumatic CD Resuscitation Status: CPR: Attempt Resuscitation [place] MD Oct 03, 2016 19:06
--- NOTE | 2016-10-03 19:23 | NUR ---
Pain P: Pt c/o increased pain in RLE while sitting in chair that was relieved initially with laying down. By lunch time pt c/o pain while laying as well. I: 1 tablet Tylenol w/ Codeine given. E: Pt reports pain is "completely gone" afterwards but now states that "it was really in my tumor" and grabs her abdomen. No palpable changes noted in size. Pt denies pain in abdomen at this time.
[2016-10-03] MEDS ORDERED: Dexamethasone Inj 8 MG in 0.9% Sodium Chloride-Pha MIX 50 ML IV ONE (20:00)
[2016-10-04] MEDS: Dexamethasone 4 mg/mL Inj IV SCH ×3 (00:45→20:40)
[2016-10-04] MEDS: Heparin 5,000 Unit/mL Inj SUBQ SCH ×3 (00:45→13:49)
[2016-10-04 04:08] VITALS: BP 121/68; PULSE 61; RESP 18; O2SAT 95
[2016-10-04 05:19] LABS: BASOPHILS % (AUTO) 0.1 % (0-3); EOSINOPHILS % (AUTO) 0 % (0-5); MONOCYTES % (AUTO) 1.8 % (4-12); Mean Corpuscular Volume 99.4 fL (81-100); NEUTROPHILS % (AUTO) 78.7 % (40-74); Platelet Count 207 bil/L (150-400)
[2016-10-04 05:29] LABS: INR 0.97 ratio
[2016-10-04 05:35] LABS: Magnesium 1.7 mg/dL (1.6-2.6); Phosphorus 3.4 mg/dL (2.5-4.9)
--- NOTE | 2016-10-04 06:10 | NUR ---
NOC activity Pt has been NPO since midnight for upcoming procedure. Has denied any episodes of chest pain, sob, n/v or abd discomfort. VSS and afebrile overnight. HS meds and IV ABx administered as scheduled. Hourly rounding done, and pt has slept most of the night.
[2016-10-04] MEDS: Insulin Human REGular 300 Unit/3 mL Inj SUBQ SCH ×4 (07:30→22:14)
[2016-10-04] MEDS: 0.9% NaCl + KCl 20 mEq/L 1,000 ML IV SCH (07:30)
[2016-10-04 08:34] VITALS: BP 160/74; PULSE 77; RESP 16; O2SAT 95
[2016-10-04] MEDS: 0.9% Sodium Chloride 1,000 ML IV SCH ×2 (09:31→23:50)
--- NOTE | 2016-10-04 11:17 | NUR ---
Off Unit/Held Meds to Radiology appt for US BX and Flow Cytometry at 1115. A&Ox3, BRO, Port hep locked by thumb sewer, Daughter present with pt, Pt left unit via w/c by [employer]. Sangeetha from CT given report just prior to pt transfer - Pt NPO since midnight and Heparin withheld for 0830 dosing. Pt NPO - medications withheld this AM. Will reassess on pt return to unit. Addendum: 10/04/16 at 1515 by ZIGGY FANG RN Returned from Radiology at ~1145. Back to bed. Port infusing IVF. Pt okayed to eat lunch. AM meds administered. Care continues.
--- NOTE | 2016-10-04 11:22 | NUR ---
Social Work- Continued D/C Planning Data: EMR reviewed. Pt is on day 4 of hospitalization for abdominal mass and right leg weakness per H&P. Pt not medically stable, anticipate multiple more days of hospitalization. SW spoke with pt at bedside this morning to follow up regarding HH. Pt declining HH at this time. Pt to discharge home with to transport via POV. SW will continue to follow up regarding HH needs pending clinical course. Assessment: Pt who may benefit from HH. Plan: Pt to discharge home with to transport via POV. Pt declining HH at this time. SW will continue to follow up regarding HH needs pending clinical course. MARY BETH Marcano
[2016-10-04] MEDS: Pantoprazole 40 mg ER24 Tablet PO SCH (13:50)
[2016-10-04] MEDS: Insulin GLARgine 100 Unit/mL Syringe SUBQ SCH ×2 (13:50→18:34)
[2016-10-04 16:07] VITALS: BP 126/57; PULSE 75; RESP 16; O2SAT 98
--- NOTE | 2016-10-04 16:20 | NUR ---
spiritual care: follow up pt reflected further on her experience of healing as well as her agreeableness to provider's continued concerns/tests. Expressive of support from spouse and purposefulness of her life. Pt descriptive of her restoration spirituality and its role for her in physical and emotional resilience.
--- NOTE | 2016-10-04 17:12 | PCM.PNMED ---
Subjective Date of Service Oct 04, 2016 Subjective The patient is feeling a little bit better today. She was disappointed that she was taken down for a biopsy and they could not perform the procedure. She has no other new complaints today. Exam Vital Signs Vital Sign - Last Date Time Temp Pulse Resp B/P Pulse Ox O2 Delivery O2 Flow Rate FiO2 10/04/16 16:07 36.7 75 16 126/57 98 Room Air Intake and Output 10/03/16 10/03/16 10/04/16 Cumulative From/Thru 15:00 23:00 07:00 09/30/16 15:44 - 10/04/16 04:42 Intake Total 2104 ml 1568 ml 8955 ml Output Total 1521 ml 700 ml 4336 ml Balance 583 ml 868 ml 4619 ml Intake Oral 1363 ml 475 ml 4139 ml IV Total 741 ml 1093 ml 4816 ml Output Urine Total 1521 ml 700 ml 4336 ml # Voids 7 9 # Bowel Movements 0 0 3 Exam General: Patient is in no apparent distress. She is lying comfortably in bed. HEENT: Head is atraumatic and normocephalic. Eyes: Pupils are equally round and reactive to light and accommodation. Extraocular muscles are intact. Sclera are white, anicteric. Subconjunctival mucosa is pink. Ears and nose are unremarkable. Oropharynx: There is no mucosal lesions, there is no thrush, there is no pharyngitis. Neck: Is supple, there are no nodes, or masses or tenderness. Chest: Is clear to auscultation and percussion. There are no rales, rhonchi, wheezes or rubs. Heart: Rate, rhythm is regular. There is no new murmur, rub or gallop. Abdomen: Good bowel sounds are present. Abdomen is soft, nontender. There remains a large mass palpable in the right upper quadrant to the right flank area. This mass is firm and nontender. Extremities: Are symmetrical except for swelling in the area of the right lateral malleolus, which is chronic since previous trauma and fracture. The extremities are well perfused. There is no edema, there is no cellulitis, no rash. Neurologic: There are no focal neurological deficits. Cranial nerves II through XII are intact. There are no sensory or motor deficits, at the time of my exam. Psychiatric: Patients mood is calm and shows no sign of agitation. She actually appears euphoric, likely secondary to the high-dose IV Decadron. Genital: Deferred Rectal: Deferred Lab and Diagnostics Result Diagram: 10/04/1649910/04/16499 Microbiology Name: PIPO TURNER Age/Sex: 76/F Attend Dr: Danny Timmons MD Acct: [id number] Unit: [id number] Status: ADM IN Location: [place] [id number] Re09/30/16 Disch: Specimen: [id number] Collected: 10/03/16 Status: RES Req#: [id number] Received: 10/03/16123 Source: SPUTUM EXP Sp Desc : Subm Dr: Richard Santos MD Ordered: GRAM SPT REFLEX, SPUTUM CULTURE Comments: Collected by Nurse/Unit? Y/N Y Procedure Result Verified Site Microbiology CRISTINA CULT SPUTUM GS Final 10/03/16-1252 SPT GRAM STAIN FEW POLYS RARE EPITHELIAL CELLS RARE MIXED NORMAL ANALI This Spec is of good Quality and acceptable for Cult X-Rays, CTs and MRIs CT scan of abdomen and pelvic done at [facility] showed: CT chest/abd/ pelvis obtained today at [facility] demonstrated rapidly increasing size of malignant mass at left lower abdomen extending into the pelvis with mass effect on adjacent structures, thought to be impinging on "lumbar nerve" with tumor infiltration into spinal cord PROCEDURE: MRI LUMBAR SPINE WITH AND WITHOUT CONTRAST ([id number]) INDICATIONS: Tumor with spinal cord impingement TECHNIQUE: Noncontrast sagittal T1 spin echo and T2 fast spin echo, sagittal STIR, axial T1 and T2 fast spin echo through the lumbar spine. In cases with scoliosis, additional coronal T2 fast spin echo may be performed. After the administration of contrast, sagittal and axial T1 spin echo with fat saturation through the lumbar spine. COMPARISON: [facility], CT, CHEST/ABD/PEL WITH CONTRAST, 09/30/2016, 11:27. FINDINGS: Image quality: Excellent. Alignment and curvature: There is a prominent lumbar lordosis. There is a minimal anterolisthesis of L4 on L5. There is diffuse mild disc degenerative disease at all levels. No central canal stenosis is seen. Marrow: Marrow is of normal overall signal. No acute vertebral body compression fractures. No suspicious marrow enhancement. Spinal cord: Conus medullaris terminates at the L1. level. Visualized spinal cord demonstrates normal signal, without suspicious enhancement. Paraspinous soft tissues: No paravertebral masses or abnormal enhancement. A large retroperitoneal tumor abuts the psoas muscle but does not extend through it to the foramina at any level. The interface of the tumor the psoas is seen on the MRI but the size of the tumor is better appreciated on CT scan. No evidence for any marrow involvement or fracture is seen. Severe facet degenerative changes at L4-5 and L5-S1 are present. IMPRESSION: No involvement of the central canal or foramina by the patient's tumor in the right retroperitoneum. Dictated by: Blaine Aguila M.D. on 10/01/2016 at 22:16 Approved by: Blaine Aguila M.D. on 10/01/2016 at 22:26 Assessment & Plan The patient is a 76-year-old pleasant white female transferred from [facility] ER to the [facility] ER due to finding of large intra- abdominal mass and lower extremity weakness. Ct scan at [facility] showed a rapidly increasing size of a malignant mass at left lower abdomen extending into the pelvis with mass effect on adjacent structures, thought to be impinging on "lumbar nerve" with tumor infiltration into spinal cord. The patient was admitted to the hospitalist service here at [facility] for further evaluation and treatment. History of B cell lymphoma -- With apparent recurrence with a rapidly enlarging mass as seen on CT scan and MRI -- Radiation oncology has been consulted and planned for radiation therapy as scheduled for tomorrow afternoon to 10/05/2016 -- Oncology has been consulted and will follow their recommendations. Patient seen with, and case discussed with -- Will continue IV Decadron 4 mg IV every 8 hours -- We will check daily uric acid. The patient is on allopurinol -- Oncology recommends biopsy of the mass. This was ordered for today however the "machine was broken". The biopsy of the right upper abdominal and flank mass has been rescheduled for tomorrow morning at 8:30 on 10/05/2015 -- Flow cytometry has been ordered. Hypercalcemia secondary to above improving -- Continue IV hydration -- Continue IV Decadron -- We will follow calcium levels closely -- Further treatment as recommended by oncology IDDM type II -- A diabetic diet has been ordered -- Sliding scale insulin ordered before meals and at bedtime -- Continue Lantus insulin -- Watch closely while on IV Decadron Hypercholesteremia -- Continue current home medications Lower extremity weakness -- Improved with IV Decadron, therefore will continue -- Physical therapy to be consulted to continue to evaluate and treat patient . -- Further treatment as recommended by oncology Percocet for pain. Home medication reviewed reviewed and resumed . Lovenox for DVT prophylaxis . Continue to check daily CBC, CMP and magnesium and calcium. Disposition: Patient likely to remain hospitalized for several days and the evaluation the treatment of the above problems. Pain Evaluation: Adequate Pain Control GI Prophylaxis: Proton Pump Inhibitor VTE Prophylaxis: Sub-Q Heparin (Unfractionated) VTE Mechanical Devices: Intermittant Pneumatic CD Resuscitation Status: CPR: Attempt Resuscitation HoustonRichard MD Oct 04, 2016 17:12
[2016-10-04 19:51] VITALS: BP 129/68; PULSE 74; RESP 18; O2SAT 97
[2016-10-05] MEDS: Heparin 5,000 Unit/mL Inj SUBQ SCH ×4 (00:06→23:35)
[2016-10-05 05:08] VITALS: BP 133/66; PULSE 71; RESP 16; O2SAT 98
[2016-10-05] MEDS: Dexamethasone 4 mg/mL Inj IV SCH ×3 (05:17→20:16)
[2016-10-05 05:31] LABS: BASOPHILS % (AUTO) 0 % (0-3); EOSINOPHILS % (AUTO) 0 % (0-5); MONOCYTES % (AUTO) 6.4 % (4-12); Mean Corpuscular Hemoglobin 31.8 pg (27.0-35.0); Mean Corpuscular Volume 98.6 fL (81-100); NEUTROPHILS % (AUTO) 77.4 % (40-74); Platelet Count 212 bil/L (150-400)
[2016-10-05 05:58] LABS: Magnesium 1.6 mg/dL (1.6-2.6); Phosphorus 2.9 mg/dL (2.5-4.9)
[2016-10-05] MEDS ORDERED: 0.9% Sodium Chloride 250 ML ONE (06:23)
[2016-10-05] MEDS ORDERED: Flumazenil 0.1 mg/mL 5 mL Inj IV ONE (06:31)
[2016-10-05] MEDS: Insulin Human REGular 300 Unit/3 mL Inj SUBQ SCH ×4 (07:30→22:08)
--- NOTE | 2016-10-05 07:33 | NUR ---
NPO Patient NPO since midnight. Patient AOx3. Patient states that she doesnt have any pain at this time. Patient resting most of night. Up independent from bed to bathroom with standby assist. Heparin held for surgery. Patient's blood sugar has been elevated, 203 at 0300.
[2016-10-05] MEDS ORDERED: fentaNYL-PF 50 mCg/mL 2 mL Inj ONE (07:46)
--- NOTE | 2016-10-05 08:19 | NUR ---
Off Unit to CT for US guided Biopsy at 0820. Pt A&Ox3, DIEUDONNE, Aware of pending procedure, Port accessed and infusing, left via bed. NPO since midnight. No complaints of pain. Chart with patient. Report given to Sangeetha in CT prior to pt pickup. Await pt return. Addendum: 10/05/16 at 1933 by ZIGGY FANG RN Back at 1115 - report given prior to pt return
--- NOTE | 2016-10-05 09:15 | NUR ---
Returned to [facility] for recovery until BR completed at 1110 following a Percutaneous Abdominal biopsy guided by CT imagery. Patient has no pain - puncture site has a 5# sandbag on site - puncture site is dry and intact. Plan is to draw a HCT at 1200 and compare AM HCT draw. Currently no signs of bleeding or pain. Patient has been informed of plan of care.
[2016-10-05 11:26] VITALS: BP 166/74; PULSE 69; RESP 18; O2SAT 97
--- NOTE | 2016-10-05 11:26 | NUR ---
Bedside and verbal report given to Cheyanne Montoya RN for room 1012. Note HCT due at 1200 - for comparative to this AM draw. Any noted changes in HCT to be reported to Dr Ferris room #2 Radiologist at 3420. No pain in [facility] recovery, but at bedside report patient asked for a pain pill, stated, "the pain just started". RN for room [address] to [address] Ferris know if acute pain escalates post puncture. Right lower lateral abdominal puncture site is soft dry and intact at time of transfer from [facility] to room 1012.
[2016-10-05] MEDS: Pantoprazole 40 mg ER24 Tablet PO SCH (12:38)
[2016-10-05] MEDS: Insulin GLARgine 100 Unit/mL Syringe SUBQ SCH ×2 (12:42→19:09)
[2016-10-05] MEDS: 0.9% Sodium Chloride 1,000 ML IV SCH ×2 (12:49→21:35)
--- NOTE | 2016-10-05 12:59 | DRSVH ---
PROCEDURE: CT-GUIDED BIOPSY OF ABDOMEN OR RETROPERITONEUM ([id number]) Sedation analgesia for 30 minutes. INDICATIONS: RIGHT ABD MASS TECHNIQUE: The indications, alternatives, benefits, risks, and possible complications of the procedure were comm unicated to the patient. Informed written consent from the patient was obtained and placed in the art. Continuous EKG and hemodynamic monitoring was started by trained personnel. For radiation dose reduction, the following was used: automated exposure control, adjustment of mA and/or kV according to patient size. The patient was brought to the CT suite and pest control chemical technician spiral CT imaging was performed with localization g rid. The appropriate site for percutaneous access to the biopsy target was marked, was prepped and d raped sterilely, and was infused with local anaesthesia. Under CT guidance, a core biopsy trocar and needle set was advanced to the biopsy target, and specimen(s) were obtained. The trocar and needle were then removed, and the patient was sent for post-procedure monitoring. COMPARISON: None. FINDINGS: Biopsy site: Right flank Needle: 20 gauge biopsy needle with introducer trocar. Number of passes: 9 Medications: 1% lidocaine for local anaesthesia. IV Fentanyl and Versed for conscious sedation for 30 minutes (see nursing record). Complications: None. IMPRESSION: Successful CT-guided biopsy of a right retroperitoneal mass. Dictated by: Waleska Ferris M.D. on 10/05/2016 at 12:57 Approved by: Waleska Ferris M.D. on 10/05/2016 at 12:57
--- NOTE | 2016-10-05 14:17 | NUR ---
Social Work- Readiness for Discharge Data: EMR reviewed. Pt is on day 5 of hospitalization for abdominal mass and leg weakness per H&P. Pt is not medically stable, anticipate multiple more days. Pt's biopsy is complete. SW spoke with patient at bedside to follow up regarding discharge plan. Pt continues to deny need for HH and states she is not home bound at this time. SW followed up regarding DPOA/Advance Directive. Pt declined information at this time. Pt to discharge home with via POV. Pt agreeable to this plan. No anticipated discharge needs. Assessment: Pt who is independent with assistance from . Plan: Pt is not medically stable, anticipate multiple more days of hospitalization. Pt to discharge home with via POV. Pt agreeable to this plan. No anticipated discharge needs. MARY BETH Marcano
--- NOTE | 2016-10-05 14:27 | NUR ---
Ambulation Patient no longer wishes to use walker and has attempted to self-transfer Encouraged patient to use walker and reinforced fall precautions, including [place] alarm and non-skid socks Patient has recognized that the walker is for safety and has asked for help Care ongoing
--- NOTE | 2016-10-05 18:54 | PROG NOTE ---
[address] [address] PROGRESS NOTE PATIENT: PIPO TURNER : 1940 MR#: [id number] ADMIT: 09/30/2016 JOB ID: [id number] DATE: 10/05/2016 DIAGNOSES: 1. 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 2. Hypercalcemia, improved. SUBJECTIVE: The patient reports feeling well and has no complaints. She denies pain and she is able to ambulate without needing assistance. She has not had any falls. Her appetite is good. She is anxious to go home and she has refused rehab placement. OBJECTIVE: Awake, alert and oriented x3 but she did not recognize me even though I saw her last Tuesday. She appears comfortable and in good spirits. Blood pressure 166/74, heart rate 69, temperature 36.7, O2 saturation 97% on room air. LABORATORIES: Calcium has improved to 10.7. Creatinine has improved to 1.31. Hemoglobin has dropped to 9.2. The rest of CBC is normal. IMPRESSION/PLAN: The patient is a 76-year-old woman with rapidly progressive aggressive non-Hodgkin's B-cell lymphoma, which was rebiopsied today, and she started palliative radiotherapy. The 1st treatment was given today. Her pain responded to IV steroids. She is currently on dexamethasone 4 mg every 8 hours. I think by tomorrow if the patient remains clinically stable, she can be discharged home, given that she refuses rehab placement. Her discharge should be after her radiotherapy session. She lives in [place], and will need to drive to [place] on a daily basis for the remainder of radiotherapy. As far as steroid therapy, I would recommend a prescription for 4 mg b.i.d. x3 days followed by 4 mg once daily at the time of discharge. We will arrange a short-term oncology followup with Dr. Murillo at [facility] oncology clinic. Also, I see that a peripheral blood sample was sent for [facility] flow cytometry, which is an ordering error. Will clarify this with lab and pathology tomorrow morning.
[2016-10-05 19:25] VITALS: BP 129/60; PULSE 70; RESP 17; O2SAT 98
--- NOTE | 2016-10-05 19:33 | NUR ---
Radiation Off unit to radiation at 1450. A&OX3, BRO, left via wc, Port heplocked. Returned at 1640. back to bed
--- NOTE | 2016-10-05 21:28 | PCM.PNMED ---
Subjective Date of Service Oct 05, 2016 Subjective Patient is feeling a little bit better and has no new complaints. She tolerated the biopsy well and tolerated the radiation therapy well. However she complained that she had to keep her arms elevated for 1 hour while receiving the radiation therapy. She stated that this was a difficult part of the procedure. Exam Vital Signs Vital Sign - Last Date Time Temp Pulse Resp B/P Pulse Ox O2 Delivery O2 Flow Rate FiO2 10/05/16 19:25 36.4 70 17 129/60 98 Room Air Intake and Output 10/04/16 10/04/16 10/05/16 Cumulative From/Thru 15:00 23:00 07:00 09/30/16 15:44 - 10/05/16 05:55 Intake Total 2169 ml 1157 ml 72160 ml Output Total 350 ml 650 ml 5336 ml Balance 1819 ml 507 ml 6945 ml Intake Oral 1140 ml 300 ml 5579 ml IV Total 1029 ml 857 ml 6702 ml Output Urine Total 350 ml 650 ml 5336 ml # Voids 2 4 15 # Bowel Movements 0 0 3 Exam General: Patient is in no apparent distress. She is lying comfortably in bed. HEENT: Head is atraumatic and normocephalic. Eyes: Pupils are equally round and reactive to light and accommodation. Extraocular muscles are intact. Sclera are white, anicteric. Subconjunctival mucosa is pink. Ears and nose are unremarkable. Oropharynx: There is no mucosal lesions, there is no thrush, there is no pharyngitis. Neck: Is supple, there are no nodes, or masses or tenderness. Chest: Is clear to auscultation and percussion. There are no rales, rhonchi, wheezes or rubs. Heart: Rate, rhythm is regular. There is no new murmur, rub or gallop. Abdomen: Good bowel sounds are present. Abdomen is soft, nontender. There remains a large mass palpable in the right upper quadrant to the right flank area. This mass is firm and nontender. Extremities: Are symmetrical except for swelling in the area of the right lateral malleolus, which is chronic since previous trauma and fracture. The extremities are well perfused. There is no edema, there is no cellulitis, no rash. Neurologic: There are no focal neurological deficits. Cranial nerves II through XII are intact. There are no sensory or motor deficits, at the time of my exam. Psychiatric: Patients mood is calm and shows no sign of agitation. She actually appears euphoric, likely secondary to the high-dose IV Decadron. Genital: Deferred Rectal: Deferred Lab and Diagnostics Result Diagram: 10/05/16 1216 10/05/16 0510 Microbiology Name: PIPO TURNER Age/Sex: 76/F Attend Dr: Danny Timmons MD Acct: [id number] Unit: [id number] Status: ADM IN Location: [place] [address]- Re09/30/16 Disch: Specimen: [id number] Collected: 10/03/16114 Status: RES Req#: [id number] Received: 10/03/16123 Source: SPUTUM EXP Sp Desc : Subm Dr: Richard Santos MD Ordered: GRAM SPT REFLEX, SPUTUM CULTURE Comments: Collected by Nurse/Unit? Y/N Y Procedure Result Verified Site Microbiology CRISTINA CULT SPUTUM GS Final 10/03/16-1252 SPT GRAM STAIN FEW POLYS RARE EPITHELIAL CELLS RARE MIXED NORMAL ANALI This Spec is of good Quality and acceptable for Cult X-Rays, CTs and MRIs CT scan of abdomen and pelvic done at [facility] showed: CT chest/abd/ pelvis obtained today at [facility] demonstrated rapidly increasing size of malignant mass at left lower abdomen extending into the pelvis with mass effect on adjacent structures, thought to be impinging on "lumbar nerve" with tumor infiltration into spinal cord PROCEDURE: MRI LUMBAR SPINE WITH AND WITHOUT CONTRAST ([id number]) INDICATIONS: Tumor with spinal cord impingement TECHNIQUE: Noncontrast sagittal T1 spin echo and T2 fast spin echo, sagittal STIR, axial T1 and T2 fast spin echo through the lumbar spine. In cases with scoliosis, additional coronal T2 fast spin echo may be performed. After the administration of contrast, sagittal and axial T1 spin echo with fat saturation through the lumbar spine. COMPARISON: [facility], CT, CHEST/ABD/PEL WITH CONTRAST, 09/30/2016, 11:27. FINDINGS: Image quality: Excellent. Alignment and curvature: There is a prominent lumbar lordosis. There is a minimal anterolisthesis of L4 on L5. There is diffuse mild disc degenerative disease at all levels. No central canal stenosis is seen. Marrow: Marrow is of normal overall signal. No acute vertebral body compression fractures. No suspicious marrow enhancement. Spinal cord: Conus medullaris terminates at the L1. level. Visualized spinal cord demonstrates normal signal, without suspicious enhancement. Paraspinous soft tissues: No paravertebral masses or abnormal enhancement. A large retroperitoneal tumor abuts the psoas muscle but does not extend through it to the foramina at any level. The interface of the tumor the psoas is seen on the MRI but the size of the tumor is better appreciated on CT scan. No evidence for any marrow involvement or fracture is seen. Severe facet degenerative changes at L4-5 and L5-S1 are present. IMPRESSION: No involvement of the central canal or foramina by the patient's tumor in the right retroperitoneum. Dictated by: Blaine Aguila M.D. on 10/01/2016 at 22:16 Approved by: Blaine Aguila M.D. on 10/01/2016 at 22:26 Assessment & Plan The patient is a 76-year-old pleasant white female transferred from [facility] ER to the [facility] ER due to finding of large intra- abdominal mass and lower extremity weakness. Ct scan at [facility] showed a rapidly increasing size of a malignant mass at left lower abdomen extending into the pelvis with mass effect on adjacent structures, thought to be impinging on "lumbar nerve" with tumor infiltration into spinal cord. The patient was admitted to the hospitalist service here at [facility] for further evaluation and treatment. History of B cell lymphoma -- With apparent recurrence with a rapidly enlarging mass as seen on CT scan and MRI -- Radiation oncology has been consulted and the first dose of radiation therapy was given today after CT-guided needle biopsy of the mass was performed. -- Oncology has been consulted and will follow their recommendations. Patient seen with, and case discussed with -- Will continue IV Decadron 4 mg IV every 8 hours up until the time of discharge. -- We will check daily uric acid. The patient is on allopurinol -- Oncology recommends biopsy of the mass. The biopsy of the right upper abdominal and flank mass has been performed today 10/05/2016. -- Flow cytometry has been ordered. Hypercalcemia secondary to above improving -- Continue IV hydration -- Continue IV Decadron -- We will follow calcium levels closely -- Further treatment as recommended by oncology IDDM type II -- A diabetic diet has been ordered -- Sliding scale insulin ordered before meals and at bedtime -- Continue Lantus insulin -- Watch closely while on IV Decadron Hypercholesteremia -- Continue current home medications Lower extremity weakness -- Improved with IV Decadron, therefore will continue -- Physical therapy to be consulted to continue to evaluate and treat patient . -- Further treatment as recommended by oncology Percocet for pain. Home medication reviewed reviewed and resumed . Lovenox for DVT prophylaxis . Continue to check daily CBC, CMP and magnesium and calcium. Disposition: Patient likely to remain hospitalized for several days and the evaluation the treatment of the above problems. Pain Evaluation: Adequate Pain Control GI Prophylaxis: Proton Pump Inhibitor VTE Prophylaxis: Sub-Q Heparin (Unfractionated) VTE Mechanical Devices: Intermittant Pneumatic CD Resuscitation Status: CPR: Attempt Resuscitation Richard Santos MD Oct 05, 2016 21:28
[2016-10-06] MEDS: Codeine-APAP 30-300 mg Tablet PO PRN ×2 (02:30→21:19)
--- NOTE | 2016-10-06 02:39 | NUR ---
Pain Pt.c/o 12/15 abd. pain r/t bx site and med with 1 tylenol with codeine at this time.Otherwise has been comfortable this shift.VSS.Up with SBA and moving well.I&0 qs.Sleeping soundly thus far and resting comfortably.Will cont. to monitor.
[2016-10-06] MEDS: 0.9% Sodium Chloride 1,000 ML IV SCH ×2 (03:34→18:20)
[2016-10-06] MEDS: Dexamethasone 4 mg/mL Inj IV SCH ×3 (03:38→20:35)
[2016-10-06 04:57] VITALS: BP 121/64; PULSE 72; RESP 18; O2SAT 96
[2016-10-06 05:39] LABS: BASOPHILS % (AUTO) 0 % (0-3); EOSINOPHILS % (AUTO) 0 % (0-5); MONOCYTES % (AUTO) 5.7 % (4-12); Mean Corpuscular Hemoglobin 31.2 pg (27.0-35.0); Platelet Count 206 bil/L (150-400)
[2016-10-06 06:06] LABS: Magnesium 1.6 mg/dL (1.6-2.6); Phosphorus 3.1 mg/dL (2.5-4.9)
[2016-10-06] MEDS: Insulin Human REGular 300 Unit/3 mL Inj SUBQ SCH ×4 (07:30→22:33)
[2016-10-06] MEDS: Pantoprazole 40 mg ER24 Tablet PO SCH (08:26)
[2016-10-06] MEDS: Heparin 5,000 Unit/mL Inj SUBQ SCH ×3 (08:28→23:34)
[2016-10-06] MEDS: Insulin GLARgine 100 Unit/mL Syringe SUBQ SCH ×2 (08:30→18:00)
[2016-10-06] MEDS ORDERED: Magnesium Sulf 4 Gm/100 mL H2O 4 GM in IV Premix 1 EACH IV ONE (08:45)
--- NOTE | 2016-10-06 09:36 | NUR ---
[facility] signed [id number]
[2016-10-06 10:29] VITALS: BP 133/65; PULSE 70; RESP 18; O2SAT 100
--- NOTE | 2016-10-06 14:34 | NUR ---
Social Work- Readiness for Discharge Data: EMR reviewed. Pt is on day 6 of hospitalization for abdominal mass and leg weakness per H&P. Pt is not medically stable, anticipate tomorrow. At MD's request, TAMIKO spoke with patient and family at bedside to follow up regarding transportation to radiation. Pt informed SW that she has transportation to radiation in place. TAMIKO followed up with [facility] [employer] who informed [facility] SW that volunteer transportation is in place for pt's radiation schedule through November 08. SW reinforced to patient that this is volunteer transportation and should a volunteer not be able to transport pt, pt and family will be responsible for transportation to radiation appointments. Pt to discharge home with via POV. Pt agreeable to this plan. No anticipated discharge needs. Assessment: Pt who is independent with assistance from . Plan: Pt is not medically stable, anticipate 1 more day of hospitalization. Pt to be transported to radiation appointments with existing volunteer transportation program after discharge. Pt to discharge home with via POV. Pt agreeable to this plan. No anticipated discharge needs. eLigha Gonzalez MSW
--- NOTE | 2016-10-06 15:10 | NUR ---
Radiation Pt Heplocked in order to leave for daily Radiation. At time denied CP, SOB, Nausea, pain. Pt transported via transport services.
[2016-10-06 17:29] VITALS: BP 160/73; PULSE 66; RESP 18; O2SAT 98
--- NOTE | 2016-10-06 19:33 | NUR ---
Anxiety Patient back from radiation therapy slightly anxious. Pt up with sba to bsc but is impulsive . Bed alarm is on for safety.
[2016-10-06 19:50] VITALS: BP 133/66; PULSE 64; RESP 17; O2SAT 97
--- NOTE | 2016-10-06 21:10 | PCM.PNMED ---
Subjective Date of Service Oct 06, 2016 Subjective The patient states she is not having any pain and has no new complaints. Exam Vital Signs Vital Sign - Last Date Time Temp Pulse Resp B/P Pulse Ox O2 Delivery O2 Flow Rate FiO2 10/06/16 19:50 36.4 64 17 133/66 97 Room Air Intake and Output 10/05/16 10/05/16 10/06/16 Cumulative From/Thru 15:00 23:00 07:00 09/30/16 15:44 - 10/06/16 05:30 Intake Total 50 ml 1460 ml 1105 ml 16932 ml Output Total 350 ml 600 ml 1500 ml 7786 ml Balance -300 ml 860 ml -395 ml 7110 ml Intake Oral 660 ml 240 ml 6479 ml IV Total 50 ml 800 ml 865 ml 8417 ml Output Urine Total 350 ml 600 ml 1500 ml 7786 ml # Voids 1 16 # Bowel Movements 1 0 4 Exam General: Patient is in no apparent distress. She is lying comfortably in bed. HEENT: Head is atraumatic and normocephalic. Eyes: Pupils are equally round and reactive to light and accommodation. Extraocular muscles are intact. Sclera are white, anicteric. Subconjunctival mucosa is pink. Ears and nose are unremarkable. Oropharynx: There is no mucosal lesions, there is no thrush, there is no pharyngitis. Neck: Is supple, there are no nodes, or masses or tenderness. Chest: Is clear to auscultation and percussion. There are no rales, rhonchi, wheezes or rubs. Heart: Rate, rhythm is regular. There is no new murmur, rub or gallop. Abdomen: Good bowel sounds are present. Abdomen is soft, nontender. There remains a large mass palpable in the right upper quadrant to the right flank area. This mass remains firm and nontender. Extremities: Are symmetrical except for swelling in the area of the right lateral malleolus, which is chronic since previous trauma and fracture. The extremities are well perfused. There is no edema, there is no cellulitis, no rash. Neurologic: There are no focal neurological deficits. Cranial nerves II through XII are intact. There are no sensory or motor deficits, at the time of my exam. Psychiatric: Patients mood is calm and shows no sign of agitation. She can used to appear euphoric, likely secondary to the high-dose IV Decadron. Genital: Deferred Rectal: Deferred Lab and Diagnostics Result Diagram: 10/06/1651910/06/16519 Microbiology Name: PIPO TURNER Age/Sex: 76/F Attend Dr: Danny Timmons MD Acct: [id number] Unit: [id number] Status: ADM IN [place] [facility] [place]09/30/[place] Disch: Specimen: [id number] Collected: 10/03/16 Status: RES Req#: [id number] Received: 10/03/16-1239 Source: SPUTUM EXP Sp Desc : Subm Dr: Richard Santos MD Ordered: GRAM SPT REFLEX, SPUTUM CULTURE Comments: Collected by Nurse/Unit? Y/N Y Procedure Result Verified Site Microbiology CRISTINA CULT SPUTUM GS Final 10/03/16-1252 SPT GRAM STAIN FEW POLYS RARE EPITHELIAL CELLS RARE MIXED NORMAL ANALI This Spec is of good Quality and acceptable for Cult X-Rays, CTs and MRIs CT scan of abdomen and pelvic done at [facility] showed: CT chest/abd/ pelvis obtained today at [facility] demonstrated rapidly increasing size of malignant mass at left lower abdomen extending into the pelvis with mass effect on adjacent structures, thought to be impinging on "lumbar nerve" with tumor infiltration into spinal cord PROCEDURE: MRI LUMBAR SPINE WITH AND WITHOUT CONTRAST ([id number]) INDICATIONS: Tumor with spinal cord impingement TECHNIQUE: Noncontrast sagittal T1 spin echo and T2 fast spin echo, sagittal STIR, axial T1 and T2 fast spin echo through the lumbar spine. In cases with scoliosis, additional coronal T2 fast spin echo may be performed. After the administration of contrast, sagittal and axial T1 spin echo with fat saturation through the lumbar spine. COMPARISON: [facility], CT, CHEST/ABD/PEL WITH CONTRAST, 09/30/2016, 11:27. FINDINGS: Image quality: Excellent. Alignment and curvature: There is a prominent lumbar lordosis. There is a minimal anterolisthesis of L4 on L5. There is diffuse mild disc degenerative disease at all levels. No central canal stenosis is seen. Marrow: Marrow is of normal overall signal. No acute vertebral body compression fractures. No suspicious marrow enhancement. Spinal cord: Conus medullaris terminates at the L1. level. Visualized spinal cord demonstrates normal signal, without suspicious enhancement. Paraspinous soft tissues: No paravertebral masses or abnormal enhancement. A large retroperitoneal tumor abuts the psoas muscle but does not extend through it to the foramina at any level. The interface of the tumor the psoas is seen on the MRI but the size of the tumor is better appreciated on CT scan. No evidence for any marrow involvement or fracture is seen. Severe facet degenerative changes at L4-5 and L5-S1 are present. IMPRESSION: No involvement of the central canal or foramina by the patient's tumor in the right retroperitoneum. Dictated by: Blaine Aguila M.D. on 10/01/2016 at 22:16 Approved by: Blaine Aguila M.D. on 10/01/2016 at 22:26 Assessment & Plan The patient is a 76-year-old pleasant white female transferred from [facility] ER to the [facility] ER due to finding of large intra- abdominal mass and lower extremity weakness. Ct scan at [facility] showed a rapidly increasing size of a malignant mass at left lower abdomen extending into the pelvis with mass effect on adjacent structures, thought to be impinging on "lumbar nerve" with tumor infiltration into spinal cord. The patient was admitted to the hospitalist service here at [facility] for further evaluation and treatment. History of B cell lymphoma -- With apparent recurrence with a rapidly enlarging mass as seen on CT scan and MRI -- Radiation oncology has been consulted and the first dose of radiation therapy was given 10/05/[address]-guided needle biopsy of the mass was performed. -- Oncology has been consulted and will follow their recommendations. Patient seen with, and case discussed with -- Will continue IV Decadron 4 mg IV every 8 hours up until the time of discharge and then switch to by mouth. -- We will check daily uric acid. The patient is on allopurinol -- Oncology recommends biopsy of the mass. The biopsy of the right upper abdominal and flank mass has been performed on 10/05/2016. -- Flow cytometry has been ordered. Hypomagnesemia -- We will replace with 4 g of magnesium sulfate IV today. Hypercalcemia present on admission and secondary to above, improving -- Continue IV hydration -- Continue IV Decadron -- We will follow calcium levels closely -- Further treatment as recommended by oncology IDDM type II -- A diabetic diet has been ordered -- Sliding scale insulin ordered before meals and at bedtime -- Continue Lantus insulin -- Watch closely while on IV Decadron Hypercholesteremia -- Continue current home medications Lower extremity weakness -- Improved with IV Decadron, therefore will continue -- Physical therapy to be consulted to continue to evaluate and treat patient . -- Further treatment as recommended by oncology Percocet for pain. Home medication reviewed reviewed and resumed . Lovenox for DVT prophylaxis . Continue to check daily CBC, CMP and magnesium and calcium. Disposition: Patient may be able to be discharged within the next 24-48 hours and continue receiving radiation therapy on a daily basis and then follow-up with oncology for possible chemotherapy once biopsy results have returned. Pain Evaluation: Adequate Pain Control GI Prophylaxis: Proton Pump Inhibitor VTE Prophylaxis: Sub-Q Heparin (Unfractionated) VTE Mechanical Devices: Intermittant Pneumatic CD Resuscitation Status: CPR: Attempt Resuscitation CamptiRichard humphreys MD Oct 06, 2016 21:10
--- NOTE | 2016-10-06 21:42 | NUR ---
Pain Pt c/o lower abdominal pain. She states, "It's where I had surgery". Pt had a CT guided biopsy earlier this visit Given one tablet codeine per pt request. Will cont to monitor
[2016-10-07] MEDS: Dexamethasone 4 mg/mL Inj IV SCH ×2 (04:13→12:28)
[2016-10-07] MEDS: Codeine-APAP 30-300 mg Tablet PO PRN (04:23)
[2016-10-07] MEDS: 0.9% Sodium Chloride 1,000 ML IV SCH (04:24)
[2016-10-07 04:28] LABS: BASOPHILS % (AUTO) 0 % (0-3); EOSINOPHILS % (AUTO) 0 % (0-5); MONOCYTES % (AUTO) 6.8 % (4-12); Mean Corpuscular Hemoglobin 32.1 pg (27.0-35.0); Mean Corpuscular Volume 98.6 fL (81-100); NEUTROPHILS % (AUTO) 85.9 % (40-74); Platelet Count 185 bil/L (150-400)
[2016-10-07 04:48] LABS: Magnesium 2.3 mg/dL (1.6-2.6)
[2016-10-07 05:05] VITALS: BP 140/65; PULSE 71; RESP 17; O2SAT 97
[2016-10-07] MEDS: Insulin Human REGular 300 Unit/3 mL Inj SUBQ SCH ×2 (07:30→12:28)
[2016-10-07] MEDS: Pantoprazole 40 mg ER24 Tablet PO SCH (09:07)
[2016-10-07] MEDS: Heparin 5,000 Unit/mL Inj SUBQ SCH (09:13)
[2016-10-07] MEDS: Insulin GLARgine 100 Unit/mL Syringe SUBQ SCH (09:16)
[2016-10-07 09:56] VITALS: BP 115/57; PULSE 76; RESP 12; O2SAT 96
--- NOTE | 2016-10-07 10:52 | NUR ---
Palliative Care Palliative Care received order from Dr Santos 10/06/16 to assist with (?) goals of care. However, order has been cancelled as referral for Palliative is not appropriate at this time. Patient wants full treatment and will remain full code. Lisa Reynaga
--- NOTE | 2016-10-07 15:00 | NUR ---
Radiation Pt leaves with transport services to radiation. Addendum: 10/07/16 at 1649 by RUY TRAN RN 1620 Pt returns from Radiation. DANIELLE de-accessed pts port as requested to prepare for discharge this evening.
--- NOTE | 2016-10-07 15:46 | NUR ---
Confusion / Forgetfulness Pt does has some forgetfulness at times. Will say that she just ate when she hasn't, or say that she had radiation in morning yesterday when this is not true. Pt is able to state correctly all orientation questions. Does seem to remember most things but at times seems confused and forgetful.
--- NOTE | 2016-10-07 17:29 | PCM.DIMED ---
Discharge Instructions Date of Service Oct 07, 2016 Dates of Hospitalization Sep 30, 2016 at 18:00 Discharge Diagnosis Discharge Diagnosis Recurrent B-Cell Lymphoma Diet Diabetic Activity No restrictions (May resume usual activities as tolerated) Call your provider Fever or Chills, Shortness of breath, Bleeding, Chest pain, Vomitting, Weakness (unilateral), Other Patient Instructions Follow-up Provider: Blaine Rizzo MD Follow-up with PCP in: 1 week Provider: Robert Murillo MD Follow-up in: 1 week Additional Information Patient is to follow up for radiation therapy everyday tuesday thru tuesday. Richard Santos MD Oct 07, 2016 17:29
[2016-10-07] MEDS ORDERED: DIF100A PO (17:33)
[2016-10-07] MEDS ORDERED: DEX1 PO (17:33)
--- NOTE | 2016-10-07 18:24 | NUR ---
DC Pt and loader engineer understand all discharge information. Pt taken via WC out to vehicle to ride home with loader engineer. Port de-accessed by IVT. Denies CP, Pain, Nausea, SOB. Care discontinues
--- NOTE | 2016-10-07 19:42 | PROG NOTE ---
[address] [address] PROGRESS NOTE PATIENT: PIPO TURNER : 1940 MR#: [id number] ADMIT: 09/30/2016 JOB ID: [id number] DATE: 10/07/2016 HOSPITAL ROUNDS: This is a very pleasant 76-year-old woman who is in the hospital because of known progressive non-Hodgkin's lymphoma after chemotherapy and progressive right lower extremity weakness making it impossible for her walk. She was hospitalized on September 30, 2016, with these findings and was found on imaging to have a rapidly growing mass involving the right lower abdomen, extending into the pelvis, previously measuring 10.4 x 5.6 cm on September 13, 2016, and now measuring 12.4 x 10.2 x 13.3 cm. Mass effect on adjacent structures was noted as well and an MRI of the lumbar spine on October 01, 2016, with and without contrast, showed no involvement of the central canal or foramen by the tumor. Therefore, the right leg weakness must be due to a more peripheral effect on neuro function. The patient was sent from [facility] to [facility] so that she could receive palliative radiation therapy and oncology was called to evaluate her as well. The patient was treated for a diffuse large B-cell lymphoma by open tissue biopsy diagnosis of a large right lower quadrant mass. Biopsy was on February 29, 2016, and showed a diffuse large B-cell lymphoma, germinal center type. CD 20 positive. She was treated with six cycles of Rituxan/CHOP from April 2016 and received her last dose on August 11, 2016. She had an initial good response in terms of shrinkage of the tumor but has now progressed. Given her frail status, it was known that she had residual disease and, rather than placing her on second-line chemotherapy, we elected to refer her for palliative radiation therapy initially. She is now receiving palliative radiation therapy and questions whether further chemotherapy should be administered are under consideration. We considered additional palliative chemotherapy. This could include bendamustine and rituximab, brentuximab vedotin if CD 30 positive, lenalidomide plus rituximab, or gemcitabine, dexamethasone, and carboplatin but no other more aggressive regimens would be tolerated in my opinion. This is an ominous finding to have progression so soon after completion of chemotherapy, and even prior to the completion of the last dose most likely, and her outlook is very guarded. Subjectively, she is in reasonably good spirits. She was happy to see me and speak and had questions about her management and treatment options. Currently she is in no pain and she feels her leg he has been "cured." She can now walk so she has had already had a response to dexamethasone and radiation. OBJECTIVE: Her temperature is 36.5, pulse 76, respiratory rate 12, blood pressure 115/57, pulse ox 96% on room air. In general, she looks comfortable. Head and neck: Alopecia. Pupils equal, round, and reactive. Dry oral mucosa. No icterus. No head and neck adenopathy. Lungs: Inspiratory expiratory scattered rhonchi anteriorly and laterally auscultated. Cardiac: Rhythm is regular, without murmur or peripheral edema. Abdomen: There is a large mass effect in the right lower quadrant which is more prominent than on previous exams. Bowel sounds are present. Extremities: Show no edema. There is some decreased strength on dorsiflexion of the left, but not the right, foot. LABORATORY VALUES: The white count is 11.5, hemoglobin 9.5, hematocrit 29.2, and platelets 185. The BUN and creatinine are 36 and 1.28. Electrolytes normal. Glucose level 193. ALT, AST, alkaline phosphatase, and bilirubin normal. Albumin 3.2. ASSESSMENT AND RECOMMENDATIONS: This is a very pleasant 76-year-old woman with early relapse after initial response to Rituxan/CHOP for diffuse large B-cell lymphoma. She has had a second biopsy two days ago to determine whether she has evolved into another type of lymphoma such as a double-hit lymphoma which may respond to different treatment regimens. In my opinion her condition is not strong enough to undergo active inpatient aggressive chemotherapy; however, she is welcome to have a second opinion on that. I think she would need to be treated at [facility] if she were to undergo that type of treatment. She has had an initial response to radiation and this has been an effective palliative dose, but will certainly not prevent relapse of her disease, which would likely occur within the next few months without systemic therapy. I will consult with the hospitalist team, and also with Dr. Hayes Clarke, our colleague at [facility], to see they would manage a person with this complex history and limitations on what kind of treatment she can receive.
--- NOTE | 2016-10-08 00:50 | PCM.DC.MED ---
Discharge Summary Date of Service Oct 07, 2016 Dates of Hospitalization Date of Hospital Admission Sep 30, 2016 at 18:00 Date of Discharge: Oct 07, 2016 Providers: Admitting Physician: Danny Timmons MD Primary Care Physician: Blaine Rizzo MD Attending Physician: Danny Timmons MD Diagnosis at Time of Discharge Diagnosis at Time of Discharge Recurrent B-Cell Lymphoma Consultations Oncology Procedures XRay, CTs & MRIs CT scan of abdomen and pelvic done at [facility] showed: CT chest/abd/ pelvis obtained today at [facility] demonstrated rapidly increasing size of malignant mass at left lower abdomen extending into the pelvis with mass effect on adjacent structures, thought to be impinging on "lumbar nerve" with tumor infiltration into spinal cord PROCEDURE: MRI LUMBAR SPINE WITH AND WITHOUT CONTRAST ([id number]) INDICATIONS: Tumor with spinal cord impingement TECHNIQUE: Noncontrast sagittal T1 spin echo and T2 fast spin echo, sagittal STIR, axial T1 and T2 fast spin echo through the lumbar spine. In cases with scoliosis, additional coronal T2 fast spin echo may be performed. After the administration of contrast, sagittal and axial T1 spin echo with fat saturation through the lumbar spine. COMPARISON: [facility], CT, CHEST/ABD/PEL WITH CONTRAST, 09/30/2016, 11:27. FINDINGS: Image quality: Excellent. Alignment and curvature: There is a prominent lumbar lordosis. There is a minimal anterolisthesis of L4 on L5. There is diffuse mild disc degenerative disease at all levels. No central canal stenosis is seen. Marrow: Marrow is of normal overall signal. No acute vertebral body compression fractures. No suspicious marrow enhancement. Spinal cord: Conus medullaris terminates at the L1. level. Visualized spinal cord demonstrates normal signal, without suspicious enhancement. Paraspinous soft tissues: No paravertebral masses or abnormal enhancement. A large retroperitoneal tumor abuts the psoas muscle but does not extend through it to the foramina at any level. The interface of the tumor the psoas is seen on the MRI but the size of the tumor is better appreciated on CT scan. No evidence for any marrow involvement or fracture is seen. Severe facet degenerative changes at L4-5 and L5-S1 are present. IMPRESSION: No involvement of the central canal or foramina by the patient's tumor in the right retroperitoneum. Dictated by: Blaine Aguila M.D. on 10/01/2016 at 22:16 Approved by: Blaine Aguila M.D. on 10/01/2016 at 22:26 Brief History This is a 76 years old female with past medical history diabetes, hyperlipidemia, B-cell lymphoma diagnosed 2 years ago status post chemotherapy which completed 2 months ago. Patient said this morning she woke up and tried to walk to the bathroom and suddenly her LE gave up on her. She was taken to [facility] where a ct scan shows : rapidly increasing size of malignant mass at left lower abdomen extending into the pelvis with mass effect on adjacent structures, thought to be impinging on "lumbar nerve" with tumor infiltration into spinal cord. Patient was transported to [facility] and oncology was consulted by ER physician. The patient was admitted to the hospital service for further evaluation and treatment recommendations. Hospital Course The patient is a 76-year-old pleasant white female transferred from [facility] ER to the [facility] ER due to finding of large intra- abdominal mass and lower extremity weakness. Ct scan at [facility] showed a rapidly increasing size of a malignant mass at left lower abdomen extending into the pelvis with mass effect on adjacent structures, thought to be impinging on "lumbar nerve" with tumor infiltration into spinal cord. The patient was admitted to the hospitalist service here at [facility] for further evaluation and treatment. History of B cell lymphoma -- With apparent recurrence with a rapidly enlarging mass as seen on CT scan and MRI -- Radiation oncology has been consulted and the first dose of radiation therapy was given 10/05/[address]-guided needle biopsy of the mass was performed. -- Oncology has been consulted and will follow their recommendations. Patient seen with, and case discussed with -- Will continue IV Decadron 4 mg IV every 8 hours up until the time of discharge and then switch to by mouth. -- We will check daily uric acid. The patient is on allopurinol -- Oncology recommends biopsy of the mass. The biopsy of the right upper abdominal and flank mass has been performed on 10/05/2016. -- Flow cytometry has been ordered. Hypomagnesemia -- We will replace with 4 g of magnesium sulfate IV today. Hypercalcemia present on admission and secondary to above, improving -- Continue IV hydration -- Continue IV Decadron -- We will follow calcium levels closely -- Further treatment as recommended by oncology IDDM type II -- A diabetic diet has been ordered -- Sliding scale insulin ordered before meals and at bedtime -- Continue Lantus insulin -- Watch closely while on IV Decadron Hypercholesteremia -- Continue current home medications Lower extremity weakness -- Improved with IV Decadron, therefore will continue -- Physical therapy to be consulted to continue to evaluate and treat patient . -- Further treatment as recommended by oncology Percocet for pain. Home medication reviewed reviewed and resumed . Lovenox for DVT prophylaxis . Continue to check daily CBC, CMP and magnesium and calcium. Disposition: Patient may be able to be discharged today and will continue receiving radiation therapy on a daily basis and then follow-up with oncology for possible chemotherapy once biopsy results have returned. Exam Vital Signs (Last) Date Time Temp Pulse Resp B/P Pulse Ox O2 Delivery O2 Flow Rate FiO2 10/07/16 09:56 36.5 76 12 115/57 96 Room Air Exam General: Patient is in no apparent distress. She is lying comfortably in bed. HEENT: Head is atraumatic and normocephalic. Eyes: Pupils are equally round and reactive to light and accommodation. Extraocular muscles are intact. Sclera are white, anicteric. Subconjunctival mucosa is pink. Ears and nose are unremarkable. Oropharynx: There is no mucosal lesions, there is no thrush, there is no pharyngitis. Neck: Is supple, there are no nodes, or masses or tenderness. Chest: Is clear to auscultation and percussion. There are no rales, rhonchi, wheezes or rubs. Heart: Rate, rhythm is regular. There is no new murmur, rub or gallop. Abdomen: Good bowel sounds are present. Abdomen is soft, nontender. There remains a large mass palpable in the right upper quadrant to the right flank area. This mass remains firm and nontender. Extremities: Are symmetrical except for swelling in the area of the right lateral malleolus, which is chronic since previous trauma and fracture. The extremities are well perfused. There is no edema, there is no cellulitis, no rash. Neurologic: There are no focal neurological deficits. Cranial nerves II through XII are intact. There are no sensory or motor deficits, at the time of my exam. Psychiatric: Patients mood is calm and shows no sign of agitation. She can used to appear euphoric, likely secondary to the high-dose IV Decadron. Genital: Deferred Rectal: Deferred Test 09/30/16 20:19 09/30/16 20:20 10/01/16 05:40 10/04/16 05:00 Hold Purple Top Tube Received (Received) Hold Red Top Tube Received (Received) Hold Kyle Top Tube Received (Received) Hold [place] Top Tube Received (Received) Hemoglobin A1c 5.5% (4.8-5.6) Prothrombin Time 10.4sec (8.1-12.5) Prothromb Time International Ratio 0.97ratio Test 10/07/16 04:15 White Blood Count 11.5th/mm3 (3.8-10.1) Red Blood Count 2.96mil/mm3 (3.90-5.20) Hemoglobin 9.5g/dL (12.0-15.6) Hematocrit 29.2% (35.0-46.0) Mean Corpuscular Volume 98.6fL (81-100) Mean Corpuscular Hemoglobin 32.1pg (27.0-35.0) Mean Corpuscular Hemoglobin Concent 32.5% (32.0-37.0) Red Cell Distribution Width 16.4% (12.3-15.4) Platelet Count 185bil/L (150-400) Neutrophils (%) (Auto) 85.9% (40-74) Lymphocytes (%) (Auto) 7.0% (14-46) Monocytes (%) (Auto) 6.8% (4-12) Eosinophils (%) (Auto) 0% (0-5) Basophils (%) (Auto) 0% (0-3) Sodium Level 139mEq/L (134-144) Potassium Level 4.1mEq/L (3.5-5.2) Chloride Level 102mEq/L (97-108) Carbon Dioxide Level 27mmol/L (18-29) Blood Urea Nitrogen 36mg/dL (8-27) Creatinine 1.28mg/dL (0.57-1.00) Estimat Glomerular Filtration Rate 58mL/min (>59) Glucose Level 193mg/dL (60-99) Uric Acid 3.4mg/dL (2.6-7.2) Calcium Level 9.7mg/dL (8.5-10.1) Phosphorus Level 3.0mg/dL (2.5-4.9) Magnesium Level 2.3mg/dL (1.6-2.6) Total Bilirubin 0.2mg/dL (0.0-1.2) Aspartate Amino Transf (AST/SGOT) 24U/L (0-50) Alanine Aminotransferase (ALT/SGPT) 17U/L (0-32) Alkaline Phosphatase 40U/L (25-165) Total Protein 5.5g/dL (6.4-8.4) Albumin 3.2g/dL (3.4-5.0) Microbiology Results Name: PIPO TURNER Age/Sex: 76/F Attend Dr: Danny Timmons MD Acct: [id number] Unit: [id number] Status: ADM IN Location: [facility] [place] 1012-1 Re09/30/16 Disch: Specimen: [id number] Collected: 10/03/16 Status: RES Req#: [id number] Received: 10/03/161238 Source: SPUTUM EXP Sp Desc : Subm Dr: Richard Santos MD Ordered: GRAM SPT REFLEX, SPUTUM CULTURE Comments: Collected by Nurse/Unit? Y/N Y Procedure Result Verified Site Microbiology CRISTINA CULT SPUTUM GS Final 10/03/16-1252 SPT GRAM STAIN FEW POLYS RARE EPITHELIAL CELLS RARE MIXED NORMAL ANALI This Spec is of good Quality and acceptable for Cult Discharge Medications Discharge Medications Allopurinol (Allopurinol) 300 Mg Tablet 300 MG PO DAILY (Reported) Citalopram (Citalopram) 10 Mg Tablet 10 MG PO DAILY (Reported) Dexamethasone (Dexamethasone) 1 Mg Tab 2 MG PO TID Prescribed by: CARLOTTA SANTOS MD Fluconazole (Diflucan) 100 Mg Tab 100 MG PO DAILY Prescribed by: CARLOTTA SANTOS MD Fluticasone Propionate (Fluticasone Propionate Nasal) 16 Gm Gilmore.susp 2 SPRAY NS HS (Reported) Hydrochlorothiazide (Hydrochlorothiazide) 25 Mg Tablet 25 MG PO TIDWM (Reported ) 0830, 1200, 1600 TID confirmed w/ patient Insulin Glargine (Lantus U100 Insulin Vial) 100 Unit/Ml Vial 20 UNIT SUBQ DAILYWD (Reported) 10 UNITS IN AM, 20 UNITS W/ DINNER (30 UNITS TOTAL) Insulin Glargine (Lantus U100 Insulin Vial) 100 Unit/Ml Vial 10 UNIT SUBQ QAM ( Reported) 10 UNITS IN AM, 20 UNITS W/ DINNER (30 UNITS TOTAL) Magnesium Oxide (Magnesium Oxide) 400 Mg Tablet 400 MG PO BID (Reported) Pantoprazole DR (Pantoprazole DR) 40 Mg Tablet.dr 40 MG PO QAM (Reported) Rosuvastatin Calcium (Rosuvastatin Calcium) 10 Mg Tablet 10 MG PO HS (Reported) As needed Acetaminophen/Codeine 300-30mg (Acetaminophen/Codeine 300-30mg) 1 Each Tablet 1- 2 TABLET PO Q4H PRN PRN Pain (Reported) Hydrocodone-Acetaminophen 5-325 mg (Hydrocodone-Acetaminophen 5-325 mg) 1 Each Tablet 1 TABLET PO Q6H PRN PRN For Pain (Reported) Insulin Human Lispro (HumaLOG U100 Insulin Vial) 100 Unit/Ml Unit 2-8 UNIT SUBQ ACHS PRN PRN HYPERGLYCEMIA (Reported) SLIDING SCALE Ondansetron (Ondansetron) 4 Mg Tablet 4 MG SL Q6H PRN PRN For Nausea (Reported) Polyethylene Glycol 3350 (Miralax) 17 Gm Powd.pack 17 GM PO DAILY PRN PRN For Constipation (Reported) Miscellaneous Medications Magnesium (Magnesium) 200 Mg Tablet 200 MG PO (Reported) Followup Plan Disposition: The patient is being discharged to her home in [place] Discharge Diet: Diabetic Discharge Activity: No restrictions (May resume usual activities as tolerated) Follow-up Provider: Blaine Rizzo MD Follow-up with PCP in: 1 week Provider: Robert Murillo MD Follow-up in: 1 week Time spent Time spent on discharging this patient was greater than 35 minutes, over half of which was involved in counseling and coordination of care. Richard Santos MD Oct 08, 2016 00:50
--- NOTE | 2016-10-12 13:55 | PATH ---
SURGICAL PATHOLOGY Attending Physician:Robert Murillo M.D. CASE STATUS: Signed Out PATIENT NAME: PIPO TURNER PID: [id number] : 1940 DATE COLLECTED:10/05/2016 22:20 SPECIMEN: Mass, NOS CLINICAL HISTORY: 1). RIGHT ABDOMINAL MASS FINAL DIAGNOSIS: Right Abdominal Mass, Image-Guided Biopsies: Largely necrotic and crushed lymphoid tissue involved by large B-cell non-Hodgkin lymphoma, of follicular center cell origin, with increased Ki-67, see microscopic description. 10/12/2016 RUBÉN ICD10: C85.99 NOTE: These findings were discussed with Dr. Murillo on 10/12/2016 at 10:15 a.m. GROSS DESCRIPTION: The specimen is received in one formalin filled container labeled with the patient's name, sublabeled "right abdominal mass" and consists of multiple cylindrical shaped portions of tissue which aggregate to 0.9 x 0.3 x 0.1 CM. The specimen is entirely submitted in one cassette. 10/06/2016 DAC MICRO DESCRIPTION: Microscopic examination of the biopsy reveals largely crushed and necrotic tissue involved by large B-lymphocytes with increased proliferation rate, and single cell necrosis. Associated large areas of necrosis are also present and may indicate treatment effect. Corresponding flow cytometry (see report [id number]) revealed an abnormal CD10 B-cell population with increased cell size). On immunohistochemical workup, the neoplastic lymphocytes are positive for the B-cell markers CD20 and PAX5. They are also positive for CD10 and BCL6, positive for BCL2 and positive for the proliferation marker Ki-67 (approximately 90-95%). The neoplastic lymphocytes are negative for cyclin D1 (excluding [id number] blastoid variant Mantle cell lymphoma), negative for CD30, negative for CD5, negative for CD3, negative for CARMINA in situ hybridization (with appropriate positive and negative controls) and negative for MUM1. The latter stain along with CD10 and BCL6 positivity support follicular center cell type of this large B-cell lymphoma. Due to large areas of necrosis and suboptimal/compromised overall tissue, further evaluation with FISH studies (to exclude "double hit" lymphoma) was not attempted. P53 immunostain was performed in an attempt to further characterize this lymphoma, and labeled a subset (approximately <50%) of the viable lymphocytes. Overall, p53 result is hard to interpret and limited due to necrosis and crushed artifact of the viable areas. Flow Interpretation: [id number] Right abdominal mass, needle core biopsy: Abnormal CD10+ B-cell population with increased cell size identified (see Comments) Flow Comment: Due to the paucicellular nature of this specimen and the patient's reported history of B-cell non-Hodgkin lymphoma, only a limited flow study focused on evaluation of the B-cells was performed in this case. The flow cytometry analysis identifies an abnormal mature B-cell population with increased cell size by forward scatter property; aberrant loss of surface light chain expression; and expression of intermediate CD20, CD22, and CD10; and low CD19; without CD5. The abnormal B-cell population represents essentially all of the B cells, 54% of the lymphocytes, and 14% of the total viable leukocytes in this sample. This finding is most compatible with persistent involvement by a B-cell non-Hodgkin lymphoma, and the coexpression of CD10 on the abnormal cells suggests a follicle center origin, although a CD10+ mantle cell lymphoma cannot be excluded. The increased cell size of the abnormal population also suggests the presence of a large cell component. Correlation with the morphologic and immunohistochemical features of the concurrent paraffin-embedded tissue ([id number]), including evaluation of bcl-2 and cyclin D1 immunostains, will be required for more definitive diagnosis and classification of this process. - Flow cytometric analysis indicates that the viable leukocytes include 26% lymphocytes and 73% granulocytes. The lymphocytes are comprised of 54% B-cells and 36% T-cells. The mature B-cells exhibit aberrant loss of surface light chain expression. Resulting Pathologist: Althea Ayala MD - [facility] [place] [address] ICD-9 CODES: CPT CODES: 1: 28768, 13194, 65363, 99222, 46554, 07354, 41883, 69088, 24451, 31109, 97168, 55618, 62835, 79059 Electronically Signed Out Yolanda Gaytan M.D.,[facility] Pathology [facility] [address], [place] [address] Technical component performed at [facility], [address], [place], [address]
== END 2016-10-07 18:30 | disposition home or self-care (01) | DRG 842 ==
LOC: SED 15:36 → OSC 18:00
PROVIDERS: ADMIT Internal Medicine; ATTEND Internal Medicine
PROC: 0WBH3ZX Excision of Retroperitoneum, Percutaneous Approach, Diagnostic (ICD-10-PCS; principal; 2016-10-05)
PROC: DW0 Radiation Therapy, Anatomical Regions, Beam Radiation (ICD-10-PCS; 2016-10-05)
PROC: DW0 Radiation Therapy, Anatomical Regions, Beam Radiation (ICD-10-PCS; 2016-10-06)
PROC: DW0 Radiation Therapy, Anatomical Regions, Beam Radiation (ICD-10-PCS; 2016-10-07)
DX: C85.13 Unspecified B-cell lymphoma, intra-abdominal lymph nodes (principal); E83.52 Hypercalcemia; E11.9 Type 2 diabetes mellitus without complications; E78.5 Hyperlipidemia, unspecified; R53.1 Weakness; Z79.4 Long term (current) use of insulin; E83.42 Hypomagnesemia

== ENCOUNTER 2016-10-26 09:39 | Inpatient (IN) | payer MEDICARE, MEDICAID ==
[~2016-10-26] VITALS: Ht 167.6 cm; Wt 64.5 kg
[~2016-10-26 09:39] MED LIST changes: +ACET1TAB42 PO; +ALLO300T2 PO; +CITA10TA9 PO; -CREST10T PO; +DEX1 PO; +DIF100A PO; +FLUT16SP NS; -HCTZ25 PO; +HYDR-4003 PO; +HYDR25TA4 PO; +INSLIS SUBQ; -INSU100C2 SQ; -INSU100V5 SQ; +INSU100V7 SUBQ; +MAGN200T PO; +MAGN400T4 PO; -NAP250 PO; +ONDA-53 SL; +PANT40TA3 PO; +POLY17PO6 PO; -POTA10TA PO; +ROSU10TA24 PO; -[UNRECOGNIZED DRUG - CODE] IV; -[UNRECOGNIZED DRUG - CODE] IV
[2016-10-26 11:47] VITALS: BP 123/67; PULSE 87; RESP 16; O2SAT 99
[2016-10-26] MEDS ORDERED: Alum-Mag Hydrox-Simeth 30 mL Suspension PO PRN (13:05)
[2016-10-26] MEDS ORDERED: Ondansetron 2 mg/mL 2 mL Inj IVPUSH PRN (13:05)
[2016-10-26] MEDS ORDERED: Polyethylene Glycol (PEG) 17 Gm Powder PO PRN ×2 (13:05→16:05)
[2016-10-26] MEDS ORDERED: 0.9% Sodium Chloride 1,000 ML IV ONE (13:05)
[2016-10-26] MEDS: predniSONE 20 mg Tablet PO SCH ×2 (13:20→15:20)
[2016-10-26] MEDS ORDERED: Zoledronic Acid 4 mg/5 mL Inj 4 MG in 0.9% Sodium Chloride 100 ML IV ONE (13:20)
[2016-10-26 13:30] LABS: BASOPHILS % (AUTO) 0.6 % (0-3); EOSINOPHILS % (AUTO) 4.4 % (0-5); Mean Corpuscular Hemoglobin 31.5 pg (27.0-35.0); Mean Corpuscular Volume 96.4 fL (81-100); NEUTROPHILS % (AUTO) 37.8 % (40-74); Platelet Count 67 bil/L (150-400)
--- NOTE | 2016-10-26 13:59 | NUR ---
arrival Pt arrived on [facility] via BLS from [facility] at 1140, IV in left AC, no complaints of pain or nausea, admitting MD notified, awaiting arrival of pt spouse to do med rec as pt does not remember what medications she takes
[2016-10-26 14:04] LABS: TROPONIN T < 0.010 ug/L (0.0-0.011)
[2016-10-26 14:15] LABS: Magnesium 1.4 mg/dL (1.6-2.6)
[2016-10-26] MEDS ORDERED: CREST10T PO (14:21)
[2016-10-26] MEDS ORDERED: INSU100V7 SUBQ (14:24)
[2016-10-26] MEDS ORDERED: Magnesium Sulf 4 Gm/100 mL H2O 4 GM in IV Premix 1 EACH IV ONE (14:40)
--- NOTE | 2016-10-26 15:00 | PCM.HPMED ---
Subjective Date of Service Oct 26, 2016 Primary Provider: Admitting Physician: Earl Langley MD Primary Care Physician: Blaine Rizzo MD Attending Physician: Earl Langley MD Admit Status: Direct Admit, Admit to Red Team Chief Complaint: Syncope/6 hr History of Present Illness: 76 year-old lady with type II DM on insulin, history of skin cancer, hypertension, B-cell lymphoma was transferred from [facility] after she presented with an episode of syncope this morning. Patient states she was sitting in bathroom when she passed out. Her who was helping her called 911 and she was taken to [facility]. Episode lasted for few minutes. She states she felt lightheaded prior to episode. Denies hitting head. [facility] emergency room workup revealed hypercalcemia of 13.1, 1 L normal saline given and transferred to [facility] given planned radiation therapy which was due for today. she was diagnosed with B-cell non-Hodgkin's lymphoma and started on 6cycles of R-CHOP chemotherapy. Her retroperitoneal mass showed some response initially on follow-up imaging in June 2016. Mass had interval increment on imaging done in September 2016 when she presented with lower extremity weakness due to suspected mass compression of spinal cord which prompted radiation consult. Weakness improved on decadron and she was started on radiation. Last radiation last week. Was due for another treatment today at 3 PM. She continues to have poor functional status with generalized weakness. Denies fever. Denies diarrhea. Denies cough. Continues to have right upper quadrant abdominal swelling with some pain. Review of Systems: A comprehensive review of systems performed, pertinent positives and negatives included in history of present illness Allergies Coded Allergies: erythromycin base (Verified Allergy, Intermediate, Nausea,Vomiting, ) quinine (Verified Allergy, Intermediate, syncope, 09/30/16) milk (Verified Allergy, Mild, congestion, 09/30/16) [facility] b cell lymphoma Type II diabetes on insulin Hyperlipidemia Polio as a child Left ear skin cancer Hypertension Surgical History section Appendectomy Right ankle surgery Surgery of tonsils and adenoids at age 17 Мария cath insertion Family History Father with history of colon cancer Social History Hx Alcohol Use: No Hx Substance Use: No Hx Tobacco Use: No Smoking Status: Unknown if Ever Smoker Exam Vital Signs Vital Sign - Last Date Time Temp Pulse Resp B/P Pulse Ox O2 Delivery O2 Flow Rate FiO2 10/26/16 11:47 36.6 87 16 123/67 99 Room Air Exam Gen. patient is lying comfortably in hospital bed HEENT: very dry tongue, Head is normocephalic atraumatic, Lungs clear to auscultation bilaterally Heart regular rate and rhythm without murmurs gallops or rubs Abdomen right upper quadrant irregular hard mass [id number] , slightly tender on palpation Extremities pulses are present dorsalis pedis posterior tibialis and radial. Skin is warm and dry there are no rashes, Psych alert and oriented to person place and time Neuro cranial nerves II through XII are grossly intact,motor 5/5 all over Lymph: There is no lymphadenopathy appreciated in the cervical supra infraclavicular regions : no irving Lab and Diagnostics Result Diagram: 10/26/16 1320 10/26/16 1320 Assessment & Plan 76 year-old lady with type II DM on insulin, history of skin cancer, hypertension, B-cell lymphoma was transferred from [facility] after she presented with an episode of syncope this morning # Episode of Syncope, acute,poa -Due to hypercalcemia and dehydration # Malignant hypercalcemia, acute on chronic,poa -Initial ca 13.1, received 1 L of normal saline at [place], repeat ca here 12.5 -will give 1L NS bolus and then 150ml/h -Will give Zometa 4mgx1 -will start prednisone [address] Zapata recommendation -Discontinue hydrochlorothiazide which is also contributing, will replace with other antihypertensives if needed - monitor, -she had ca 13.1 on prior admission # B-cell lymphoma, chronic -Interval increment of mass after completed 6 cycle R-CHOP. Currently on radiation. -notified radiation oncology that she will miss today's treatment. Rescheduled for tomorrow,will be continued daily -spoke with Dr Murillo ,she has poor prognosis.will consult palliative care # recent bilateral lower extremity weakness due to retroperitoneal mass, resolved -Symptom improved after initiation of decadron on prior admission . #MIGUEL ,poa -cr 1.16 -IV fluids as above #Hypomagnesemia, chronic -Magnesium 1.4, repeleted #Leukopenia, chronic -ANC 590 -Continue to monitor, neutropenic precautions if continues to drop -No sign of infection. Afebrile. Monitor #Thrombocytopenia, chronic -Platelets 67 -Lovenox 40 mg prophylaxis. will hold if drops below 50 #IDDM -Continue home insulin : Lantus 10 units in daily -high correction Sliding-scale -anticipate higher insulin requirement given initiation of prednisone today #Hypertension, chronic -Hold hydrochlorothiazide # prophylaxis,lovenox and ppi given prednisone discussed code,she is DNR/DNI ,names her as POA Patient admitted under inpatient status with expected length of stay > 2 midnights for severity of present symptoms, complexities of treatment plan and risk for adverse events VTE Mechanical Devices: Intermittant Pneumatic CD Time spent 55 minutes copies to: Robert Murillo MD; Blaine Rizzo MD, [place] MD Oct 26, 2016 15:00
[2016-10-26] MEDS: 0.9% Sodium Chloride 1,000 ML IV SCH ×2 (15:05→22:26)
[2016-10-26 15:13] VITALS: PULSE 84
--- NOTE | 2016-10-26 15:53 | NUR ---
Prednisone Pt refused to take prednisone, stated she would take it in the morning because it keeps her awake at night to take it this late in the day.
[2016-10-26] MEDS ORDERED: Codeine-APAP 30-300 mg Tablet PO PRN (16:05)
[2016-10-26] MEDS ORDERED: Glucose 40% Oral Gel 15 Gm Tube PO PRN (16:15)
--- NOTE | 2016-10-26 16:32 | NUR ---
spiritual care: pt request visit attempt; pt sleeping did not rouse to voice. will follow
[2016-10-26] MEDS: 0.9% Sodium Chloride 250 ML IV SCH (16:36)
[2016-10-26] MEDS ORDERED: Sodium Chloride LOK Flush 10 mL Syringe IVFLUSH PRN ×2 (16:40)
[2016-10-26] MEDS ORDERED: HepLOK Flush 100 unit/mL 5 mL Inj IVFLUSH PRN (16:40)
[2016-10-26 17:00] VITALS: BP 121/63; PULSE 81; RESP 16; O2SAT 96
[2016-10-26] MEDS: Insulin LISPRO 300 Unit/3 mL Inj SUBQ SCH ×2 (17:30→20:53)
[2016-10-26] MEDS: Pantoprazole 40 mg ER24 Tablet PO SCH (17:49)
[2016-10-26 19:35] VITALS: BP 134/71; PULSE 87; RESP 18; O2SAT 99
[2016-10-26 20:00] VITALS: PULSE 82
[2016-10-26 20:51] LABS: APPEARANCE,URINE CLEAR (CLEAR,HAZY); COLOR,URINE YELLOW (YELLOW); OCCULT BLOOD,URINE NEGATIVE (NEGATIVE); PH,URINE 5.5 (5.0-8.0); UROBILINOGEN,URINE NORMAL (NORMAL)
[2016-10-26] MEDS: Fluticasone 0.05% 15 Spray/2 Gm 16 Gm Nasal Spray NASAL SCH (20:51)
[2016-10-27] VITALS (8 sets, daily range): BP systolic 121–145; BP diastolic 64–77; PULSE 68–88; RESP 16–18; O2SAT 95–97
--- NOTE | 2016-10-27 04:27 | NUR ---
Activity Pt has denied pain this shift and diarrhea has stopped. Pt up to BS with OPA and was incontinent of urine x1, wearing brief. Rocael bed alarm in place for fall risk. Pt has been able to sleep most of the shift without complaints.
[2016-10-27] MEDS: 0.9% Sodium Chloride 1,000 ML IV SCH ×2 (04:55→12:54)
[2016-10-27 05:31] LABS: Mean Corpuscular Hemoglobin 31.5 pg (27.0-35.0); Mean Corpuscular Volume 96.3 fL (81-100)
[2016-10-27 05:56] LABS: BASOPHILS % (AUTO) 0 % (0-3); EOSINOPHILS % (AUTO) 4 % (0-5); MONOCYTES % (AUTO) 18 % (4-12); NEUTROPHILS % (AUTO) 28 % (40-74); Platelet Count 61 bil/L (150-400)
[2016-10-27 06:14] LABS: Phosphorus 2.5 mg/dL (2.5-4.9)
[2016-10-27] MEDS ORDERED: Potassium Chloride 20 mEq SR Tablet PO ONE (06:50)
[2016-10-27] MEDS: Pantoprazole 40 mg ER24 Tablet PO SCH (07:59)
[2016-10-27] MEDS: predniSONE 20 mg Tablet PO SCH (07:59)
[2016-10-27] MEDS: Insulin LISPRO 300 Unit/3 mL Inj SUBQ SCH ×4 (08:00→22:00)
[2016-10-27] MEDS: Insulin GLARgine 100 Unit/mL Syringe SUBQ SCH (08:03)
--- NOTE | 2016-10-27 09:29 | PCM.PNMED ---
Subjective Date of Service Oct 27, 2016 Subjective No new complaints. A febrile. Continues to have pain at right upper quadrant retroperitoneum mass. Worsening Neutropenia noted, will place on neutropenic precautions. Hypercalcemia improving. Exam Vital Signs Vital Sign - Last Date Time Temp Pulse Resp B/P Pulse Ox O2 Delivery O2 Flow Rate FiO2 10/27/16 05:05 36.5 87 17 137/71 95 Room Air Intake and Output 10/26/16 10/26/16 10/27/16 Cumulative From/Thru 14:59 22:59 06:59 10/26/16 12:20 - 10/27/16 05:32 Intake Total 100 ml 3727 ml 3827 ml Output Total 175 ml 656 ml 831 ml Balance -75 ml 3071 ml 2996 ml Intake Oral 100 ml 586 ml 686 ml IV Total 3141 ml 3141 ml Output Urine Total 175 ml 656 ml 831 ml # Bowel Movements 2 0 2 Exam Gen. patient is lying comfortably in hospital bed HEENT: very dry tongue, Head is normocephalic atraumatic, Lungs clear to auscultation bilaterally Heart regular rate and rhythm without murmurs gallops or rubs Abdomen right upper quadrant irregular hard mass [id number] , slightly tender on palpation Extremities pulses are present dorsalis pedis posterior tibialis and radial. Skin is warm and dry there are no rashes, Psych alert and oriented to person place and time Neuro cranial nerves II through XII are grossly intact,motor 5/5 all over Lymph: There is no lymphadenopathy appreciated in the cervical supra infraclavicular regions : no irving IVs and Medications Medications Reviewed: Medications were reviewed in detail Lab and Diagnostics Result Diagram: 10/27/16 0504 10/27/16 0504 Assessment & Plan 76 year-old lady with type II DM on insulin, history of skin cancer, hypertension, B-cell lymphoma was transferred from [facility] after she presented with an episode of syncope this morning # Episode of Syncope, acute,poa -Due to hypercalcemia and dehydration -troponin negative.no chest pain or dyspnea,PE unlikley . # Malignant hypercalcemia, acute on chronic,poa -Initial ca 13.1, received 1 L of normal saline at [place], repeat ca here 12.5, now 11.3 -gave 1L NS bolus ,continue 150ml/h -gave Zometa 4mgx1 -started prednisone [address] Zapata recommendation -Discontinue hydrochlorothiazide which is also contributing, will replace with other antihypertensives if needed - monitor, -she had ca 13.1 on prior admission # B-cell lymphoma, chronic -Interval increment of mass after completed 6 cycle R-CHOP. Currently on radiation. - missed radiation treatment yesterday. Rescheduled for today,will be continued daily -spoke with Dr Murillo ,she has poor prognosis.will consult palliative care # recent bilateral lower extremity weakness due to retroperitoneal mass, resolved -Symptom improved after initiation of decadron on prior admission . #MIGUEL ,poa, improved -Initial cr 1.16 -IV fluids as above #Hypomagnesemia, acute on chronic, resolved -Initial Magnesium 1.4, repeleted and improved #Leukopenia, chronic -ANC 390 -Continue to monitor, neutropenic precautions -No sign of infection. Afebrile. Monitor #Thrombocytopenia, chronic -Platelets 67 -Lovenox 40 mg prophylaxis. will hold if drops below 50 #IDDM -Continue home insulin : Lantus 10 units in daily -high correction Sliding-scale -anticipate higher insulin requirement given initiation of prednisone #Hypertension, chronic -Hold hydrochlorothiazide # prophylaxis,lovenox and ppi given prednisone discussed code,she is DNR/DNI ,names her as POA Disposition: Discharge in 1-2 days VTE Mechanical Devices: Intermittant Pneumatic CD Earl Langley MD Oct 27, 2016 09:29
--- NOTE | 2016-10-27 11:19 | NUR ---
Palliative Care Palliative Care received order from Dr Langley 10/26/16 (late in day) to assist with goals of care. Patient is a 76 year old woman with hx of B-cell lymphoma. She was a direct admit from [facility] on 10/26/16. Sandeep Lee () [phone], Patricia Dhillon (daughter) [phone] Palliative Care to follow. Lisa Reynaga
--- NOTE | 2016-10-27 14:38 | NUR ---
Social Work-initial assessment: Data:See initial assessment. Pt is a 76 y/o male who was admitted on 10/26/16 for acute hypercalcemia per H&P. Pt's insurance is [facility] and [facility] and PCP is Blaine Rizzo MD. EMR reviewed. Pt's readmission score is 5-high risk. TAMIKO placed a call to pt's Sandeep [phone] to discuss discharge planning, SW role explained. Pt resides at home with in [place] in a two story home, but pt stays on one level. Pt does not drive and uses a fww at baseline. Pt has had HH, but never been to SNF. 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 SW discussed DPOA/advanced directive, pt's states they have not completed this, SW provided them with information. Pt has been doing radiation and will continue for a little while longer. MD to order Palliative care for pt. Pt's does not anticipate any discharge needs. Pt's states he will provide transport home at discharge. R/O HH services. SW provided phone number. SW will continue to follow. Assessment:pt who has supportive family. Plan:Anticipate pt to discharge home when medically stable via POV. R/O HH services.SW will continue to follow. MARY BETH Farah Addendum: 10/27/16 at 1446 by SAAD MCCRAY SS Amended: Links added.
--- NOTE | 2016-10-27 15:17 | PCM.CONPAL ---
Date of Service Oct 27, 2016 Date of Hospital Admission: Oct 26, 2016 at 11:59 Date of Palliative Consult: Oct 27, 2016 Requesting Provider: Earl Langley MD Reason Palliative Care Consult: Goals of Care Discussion Reason for Consultation Palliative Care received order from Dr Langley 10/26/16 (late in day) to assist with goals of care. Patient is a 76 year old woman with hx of B-cell lymphoma. She was a direct admit from [facility] on 10/26/16. Sandeep Lee () [phone], Patricia Dhillon (daughter) [phone] Palliative Care Recommendation Summary of palliative recommendations: Symptom management (Pain/other): 1. No active pain symptoms reported by patient. Admits to some tenderness with palpation of abdominal mass. Currently Tylenol with codeine is a PRN order , but pt has not asked for it. She denies any need for pain medications during my interview with her today. DPOA/Advanced Directives/POLST: 1. Code Status: Currently DNR/DNI 2. Capacity: In my clinical opinion, the patient is currently cognitively impaired from illness and likely partly from chemotherapy effect. She will need substantial help from a substitute decisionmaker for guidance on future healthcare decisions. 3. DPOA: On 10/27, Daughter Patricia identified patient's , Mr. Sandeep Lee as decisionmaker if her mother is unable. Mrs. Dhillon agrees with this. Mr. Lee was available by phone today and will meet Palliative Care Team at 11a.m. 10/28. 4. No prior AD or POLST Family/emotional support: Sandeep Lee () [phone], . Patricia Dhillon (daughter) [phone] Prognosis: In my clinical opinion, this patient is too frail to undergo chemotherapy at this point, and I believe with her fast-growing mass that her prognosis is poor at less than 6 months. She would be eligible for hospice if she elects not to take further chemotherapy or radiation. Today I counseled daughter that I think her mother's prognosis is 6 months or less. I also suggested that daughter go to future doctor appointments with her mother's oncologist, and she agrees with this suggestion. Tomorrow, I will make the same recommendations to patient's , when I can meet him [id number]. Spiritual support: 1. Patient identifies herself as very episcopalian Anabaptist and believes in miracles of healing. Patient Goals: TBD Palliative Care will try to reach and find out what he hopes will be helpful medical interventions for his . Additional Medical Diagnoses with primary management by Hospitalist team include : Problems: Resuscitation Status Resuscitation Status: DNR/DNI:Do Not Resuscitate/Intubate POLST Updates/Changes Previous POLST?: No . Advanced Care Planning Address: Code status change Pain: Mild Pt History History of Present Illness 76 year-old lady with type II DM on insulin, history of skin cancer, hypertension, B-cell lymphoma was transferred from [facility] after she presented there after an episode of syncope. Patient states she was sitting in bathroom when she passed out. Her who was helping her, called 911 and she was taken to [facility]. Episode lasted for a few minutes. She states she felt lightheaded prior to episode. Denies hitting head. Denies fever. Denies diarrhea. Denies cough. Continues to have right upper quadrant abdominal swelling with some pain. [facility] emergency room workup revealed hypercalcemia of 13.1. One liter NS given and transferred to [facility] where she was supposed to have radiation therapy due 10/26. Past Medical History significant for recent diagnosis in 2015 with B-cell non- Hodgkin's lymphoma and started on 6 cycles of R-CHOP chemotherapy. Her retroperitoneal mass showed some response initially on follow-up imaging in June 2016. Mass had interval increase on imaging done in September 2016 when she presented with lower extremity weakness due to suspected mass compression of spinal cord which prompted radiation consult. Weakness improved on decadron and she was started on radiation last week. She continues to have poor functional status with generalized weakness. Hospital Course: Her electrolyte chemistries are being adjusted with medical treatment. She has chronic leukopenia with ANC 390 and is on neutropenic precautions. Medications Current Medications: Current Medications Enoxaparin Sodium 40 mg 40 mg DAILY SUBQ Last administered on 10/27/16 07:58; Admin Dose 40 MG; Start 10/27/16 at 08:30 Sodium Chloride 1,000 ml @ 100 mls/hr Q10H IV Last administered on 10/27/16 12 :54; Admin Dose 100 MLS/HR; Start 10/26/16 at 13:03 Al Hydrox/Mg Hydrox/Simethicone 30 ml Q6H PRN PO; Start 10/26/16 at 13:05 Ondansetron HCl 4 to 8 mg Q4H PRN IVPUSH; Start 10/26/16 at 13:05 Senna 17.2 mg BID PRN PO; Start 10/26/16 at 13:05 Polyethylene Glycol 17 gm DAILY PRN PO; Start 10/26/16 at 13:05; Stop 10/27/16 at 08:44; Status DC Prednisone 60 mg DAILY PO Last administered on 10/27/16 07:59; Admin Dose 60 MG ; Start 10/26/16 at 13:20 Acetaminophen/ Codeine Phosphate 1 tablet Q4H PRN PO; Start 10/26/16 at 16:05 Allopurinol 300 mg DAILY PO Last administered on 10/27/16 07:58; Admin Dose 300 MG; Start 10/27/16 at 08:30 Fluticasone Propionate 2 spray HS NASAL Last administered on 10/26/16 20:51; Admin Dose 2 SPRAY; Start 10/26/16 at 21:00 Insulin Glargine 10 unit DAILY SUBQ Last administered on 10/27/16 08:03; Admin Dose 10 UNIT; Start 10/27/16 at 08:30 Magnesium Oxide 400 mg BID PO Last administered on 10/27/16 07:59; Admin Dose 400 MG; Start 10/26/16 at 16:05 Pantoprazole 40 mg DAILY PO Last administered on 10/27/16 07:59; Admin Dose 40 MG; Start 10/26/16 at 16:05 Polyethylene Glycol 17 gm DAILY PRN PO; Start 10/26/16 at 16:05 Rosuvastatin Calcium 10 mg HS PO Last administered on 10/26/16 20:52; Admin Dose 10 MG; Start 10/26/16 at 21:00 Citalopram Hydrobromide 10 mg DAILY PO Last administered on 10/27/16 07:59; Admin Dose 10 MG; Start 10/27/16 at 08:30 Insulin Human Lispro Nutritional Dose to be given pr... [facility] SUBQ Last administered on 10/27/16 12:53; Admin Dose 4 UNIT; Start 10/26/16 at 17:30 Sodium Chloride 250 ml @ 10 mls/hr Q24H IV; Start 10/26/16 at 16:36 Scheduled Allopurinol (Allopurinol) 300 Mg Tablet 300 MG PO DAILY Citalopram (Citalopram) 10 Mg Tablet 10 MG PO DAILY Dexamethasone (Dexamethasone) 1 Mg Tab 2 MG PO TID Fluticasone Propionate (Fluticasone Propionate Nasal) 16 Gm Mcdaniels.susp 2 SPRAY NS HS Hydrochlorothiazide (Hydrochlorothiazide) 25 Mg Tablet 25 MG PO TIDWM 0830, 1200, 1600 TID confirmed w/ patient Insulin Glargine (Lantus U100 Insulin Vial) 100 Unit/Ml Vial 10 UNIT SUBQ QAM Magnesium Oxide (Magnesium Oxide) 400 Mg Tablet 400 MG PO BID Pantoprazole DR (Pantoprazole DR) 40 Mg Tablet.dr 40 MG PO QAM Rosuvastatin Calcium (Crestor) 10 Mg Tablet 10 MG PO HS Scheduled PRN Acetaminophen/Codeine 300-30mg (Acetaminophen/Codeine 300-30mg) 1 Each Tablet 1- 2 TABLET PO Q4H PRN PRN Pain Insulin Human Lispro (HumaLOG U100 Insulin Vial) 100 Unit/Ml Unit 2-8 UNIT SUBQ ACHS PRN PRN HYPERGLYCEMIA SLIDING SCALE Polyethylene Glycol 3350 (Miralax) 17 Gm Powd.pack 17 GM PO DAILY PRN PRN For Constipation Objective Findings Exam Vital Sign - Last Date Time Temp Pulse Resp B/P Pulse Ox O2 Delivery O2 Flow Rate FiO2 10/27/16 14:24 36.4 86 18 121/68 96 Room Air Intake and Output 10/26/16 10/26/16 10/27/16 Cumulative From/Thru 15:00 23:00 07:00 10/26/16 12:20 - 10/27/16 05:32 Intake Total 100 ml 3727 ml 3827 ml Output Total 175 ml 656 ml 831 ml Balance -75 ml 3071 ml 2996 ml Intake Oral 100 ml 586 ml 686 ml IV Total 3141 ml 3141 ml Output Urine Total 175 ml 656 ml 831 ml # Bowel Movements 2 0 2 Objective General: patient is sitting up in hospital bed feeding herself bites of chicken with her fingers HEENT: very dry tongue, Head is normocephalic atraumatic, alopecia observed. Very [place] Lungs: B/L clear breath sounds. Heart: regular rate and rhythm without murmurs gallops or rubs Abdomen: right upper quadrant + for irregular hard mass [id number],slightly tender on palpation Extremities: pulses 2+ dorsalis pedis posterior tibialis and radial. Skin: warm, dry, no rashes, no prominent bruising or pigmentation changes. Psych: calm. pleasantly interactive, slightly confused Neuro cranial nerves II through XII are grossly intact,motor 5/5 equally upper and lower limbs, AxO x3. Lymph: no lymphadenopathy palpable. : no irving Lab/Diagnostics Lab and Imaging results reviewed in detail in EMR. Time spent Total time 70 minutes; >50% face to face with patient and/or family, providing counselling regarding plans and recommendations, and in care coordination with his/her medical teams. I also spent an additional 35 minutes counseling for advanced care planning with the patients family. Neyda Holliday MD Oct 27, 2016 15:17
--- NOTE | 2016-10-27 15:19 | NUR ---
Radiation therapy patient off to [facility] for radiation therapy.
--- NOTE | 2016-10-27 15:28 | NUR ---
spiritual care: pt request pt rec visit from caring braille translator Allegra as she was off to radiation. blessing.
[2016-10-27] MEDS: 0.9% Sodium Chloride 250 ML IV SCH (16:36)
--- NOTE | 2016-10-27 17:09 | NUR ---
Radiation patient back from [facility].
--- NOTE | 2016-10-27 18:27 | NUR ---
Mentation patient is alert and oriented X2. Able to make needs known. Denies pain or discomfort. Radiation treatment at cancer center this shift. Stable vital signs. Afebrile. continuous Neutropenic precautions. Blood sugar 124, 204, 196. Insulin given as ordered. Uses bed side commode. Normal saline running at 100cc/hour per orders. Port to left chest dressing no sign and symptoms of infection noted. Palliative doctor spoke to patient. Call light with in reach for safety. Stable mood. Continue to monitor vital signs, Pain, and safety.
[2016-10-27] MEDS: Fluticasone 0.05% 15 Spray/2 Gm 16 Gm Nasal Spray NASAL SCH (22:22)
[2016-10-28] VITALS (8 sets, daily range): BP systolic 128–164; BP diastolic 58–75; PULSE 70–87; RESP 16–18; O2SAT 97–99
[2016-10-28] MEDS: 0.9% Sodium Chloride 1,000 ML IV SCH ×2 (00:20→10:05)
--- NOTE | 2016-10-28 06:58 | NUR ---
ACTIVITY PT IMPULSIVE AND NOT USING CALL LIGHT TO ASK FOR HELP TO BSC. REMINDED ON USE AND FALL PRECAUTIONS. FAMILY DID ARRIVE DURING THE NIGHT TO SIT WITH PT. PT UP TO BSC MULTIPLE TIMES TO URINATE AND HAD 1 LOOSE STOOL
--- NOTE | 2016-10-28 07:01 | PCM.PNMED ---
Subjective Date of Service Oct 28, 2016 Subjective no acute events ovenright, s/p rad tx yesterday - pall care to discuss goals of care with today. pain controlled, no fever, denies cp/sob - IVF overnight. s/p zometa for hypercalcemia, started on prednisone yesterday Exam Vital Signs Vital Sign - Last Date Time Temp Pulse Resp B/P Pulse Ox O2 Delivery O2 Flow Rate FiO2 10/28/16 05:45 36.5 70 16 141/66 97 Room Air Intake and Output 10/27/16 10/27/16 10/28/16 Cumulative From/Thru 15:00 23:00 07:00 10/26/16 12:20 - 10/28/16 05:45 Intake Total 1818 ml 400 ml 6045 ml Output Total 800 ml 350 ml 1981 ml Balance 1018 ml 50 ml 4064 ml Intake Oral 480 ml 400 ml 1566 ml IV Total 1338 ml 4479 ml Output Urine Total 800 ml 350 ml 1981 ml # Bowel Movements 1 3 Exam Gen. patient is lying comfortably in hospital bed HEENT: mod dry mm, NCAT Lungs clear to auscultation bilaterally Heart regular rate and rhythm without murmurs gallops or rubs Abdomen right upper quadrant irregular hard mass [id number] , slightly tender on palpation Extremities pulses are present dorsalis pedis posterior tibialis and radial. Skin is warm and dry there are no rashes, Psych alert and oriented to person place and time Neuro cranial nerves II through XII are grossly intact,motor 5/5 all over Lymph: There is no lymphadenopathy appreciated in the cervical supra infraclavicular regions : no irving IVs and Medications IV Fluids decr to 70/hr Medications Reviewed: Medications were reviewed in detail Lab and Diagnostics Result Diagram: 10/27/16 0504 10/27/16 0504 Assessment & Plan 76 year-old lady with type II DM on insulin, history of skin cancer, hypertension, B-cell lymphoma was transferred from [facility] after she presented with an episode of syncope # Episode of Syncope, acute,poa -Due to hypercalcemia and dehydration -troponin negative.no chest pain or dyspnea,PE unlikley # Malignant hypercalcemia, acute on chronic,poa -Initial ca 13.1, received 1 L of normal saline at [place], repeat ca here 12.5, now 11.3 -gave 1L NS bolus ,continue 150ml/h -gave Zometa 4mgx1 -started prednisone [address] Murillo recommendation -Discontinued hydrochlorothiazide (10/27) which is also contributing, will replace with other antihypertensives if needed - monitor, -she had ca 13.1 on prior admission, repeat today # B-cell lymphoma, chronic -Interval increment of mass after completed 6 cycle R-CHOP. Currently on radiation. - missed radiation treatment yesterday. Rescheduled for today,will be continued daily -spoke with Dr Murillo ,she has poor prognosis, pall care consulted - appreciate discussion with re goals today # recent bilateral lower extremity weakness due to retroperitoneal mass, resolved -Symptom improved after initiation of decadron on prior admission . #MIGUEL ,poa, improved -Initial cr 1.16 -IV fluids as above #Hypomagnesemia, acute on chronic, resolved -Initial Magnesium 1.4, repeleted and improved #Leukopenia, chronic -ANC 390 -Continue to monitor, neutropenic precautions -No sign of infection. Afebrile. Monitor #Thrombocytopenia, chronic -Platelets 67 -Lovenox 40 mg prophylaxis. will hold if drops below 50 #IDDM -Continue home insulin : Lantus 10 units in daily -high correction Sliding-scale -anticipate higher insulin requirement given initiation of prednisone #Hypertension, chronic -Hold hydrochlorothiazide names her as POA Disposition: Discharge in 1-2 days Pain Evaluation: Adequate Pain Control GI Prophylaxis: Proton Pump Inhibitor VTE Prophylaxis: Sub-Q Enoxaparin VTE Mechanical Devices: Intermittant Pneumatic CD Resuscitation Status: DNR/DNI:Do Not Resuscitate/Intubate Time spent 45 minutes spent with eval and mgmt Danny Mesa DO Oct 28, 2016 07:01
[2016-10-28] MEDS: Insulin LISPRO 300 Unit/3 mL Inj SUBQ SCH ×4 (08:00→22:00)
[2016-10-28] MEDS: predniSONE 20 mg Tablet PO SCH (08:52)
[2016-10-28] MEDS: Pantoprazole 40 mg ER24 Tablet PO SCH (08:52)
[2016-10-28] MEDS: Insulin GLARgine 100 Unit/mL Syringe SUBQ SCH (08:55)
[2016-10-28 09:30] LABS: BASOPHILS % (AUTO) 0 % (0-3); EOSINOPHILS % (AUTO) 1.2 % (0-5); MONOCYTES % (AUTO) 20.4 % (4-12); Mean Corpuscular Hemoglobin 31.3 pg (27.0-35.0); Mean Corpuscular Volume 96.9 fL (81-100); NEUTROPHILS % (AUTO) 40.7 % (40-74); Platelet Count 55 bil/L (150-400)
--- NOTE | 2016-10-28 10:28 | PCM.PALLBR ---
Palliative Care Recommendation Summary of palliative recommendations: Symptom management (Pain/other): 1. No active pain symptoms reported by patient. Admits to some tenderness with palpation of abdominal mass. Currently Tylenol with codeine is a PRN order , but pt has not asked for it. She denies any need for pain medications during my interview with her 10/27 or 10/28. DPOA/Advanced Directives/POLST: 1. Code Status: Currently DNR/DNI 2. Capacity: In my clinical opinion, the patient is currently cognitively impaired from illness, from hypercalcemia and likely partly from chemotherapy effects. She will need substantial help from a substitute decision maker for guidance on future healthcare decisions. 3. DPOA: On 10/27, Daughter Patricia identified patient's , . Sandeep Lee as decision maker if her mother is unable. Mrs. Dhillon agrees that her will help her with decisions. Mr. Lee was available by phone and will meet Palliative Care Team at 11a.m. 10/28. 4. No prior AD or POLST. On 10/28 Dr Holliday reviewed POLST with patient, . signed (at his 's request) for DNR/DNI, comfort measures with no return to hospital wanted. However, they both want her to complete palliative radiation first, to try to get its full benefit. Original signed paperwork in paper chart. Copies to family. Copy in Pall Care Office. Family/emotional support: Sandeep Lee () home: [phone], cell:[phone]. Patricia Dhillon (daughter) [phone] Prognosis: In my clinical opinion, this patient is too frail to undergo chemotherapy at this point, and I believe with her fast-growing mass that her prognosis is poor at less than 6 months. She would be eligible for hospice if she elects not to take further chemotherapy or radiation. On 10/27, I counseled daughter that I think her mother's prognosis is 6 months or less. I also suggested that daughter go to future doctor appointments with her mother's oncologist, and she agrees with this suggestion. 10/28: Dr. Holliday spoke to Dr. Murillo who would be willing to offer a different round of chemotherapy after Palliative Radiation is over, but he feels that her condition is far too poor for any chemotherapy at this point. He has concerns that her hypercalcemia will not be well controlled in future due to worsening disease. 10/28: Dr. Holliday met with , grandson, and a friend at bedside with the patient and explained the poor prognosis that Dr. Murillo had given. Apparently , Dr. Murillo had stopped by earlier to speak to patient today and she already knew this information. She was quiet and sad. is appropriately tearful and wants to take her home when she is medically stable. They were good at comforting each other. She kept smiling at him, and reaching up to him. He kept patting her arm gently. He is interested in a hospice information visit, but both he and she want her to complete palliative radiation before hospice is involved as a regular service. Grandson states that he lives with them, and someone is always in the house with her. He will be available to help her as well. Dr. Holliday contacted Pall Care Office team and asked them to help reach Hospice to arrange an informational visit. Then they filled out a POLST with Dr. Holliday's counseling. Spiritual support: 1. Patient identifies herself as very quaker Nondenominational and believes in miracles of healing. Patient Goals: 1. To finish palliative radiation therapy 2. To go home and enjoy company of family and service dog Bridget. 3. Does not want to return to hospital in the future, once she is discharged this admission. As patient's goals are understood and documented, POLST is completed and we are not treating any active symptoms, Palliative Care Team will sign off today. Thank you for the consult. Problems: Resuscitation Status Resuscitation Status: DNR/DNI:Do Not Resuscitate/Intubate POLST Updates/Changes Previous POLST?: No POLST Last Review Date: Oct 28, 2016 Antibiotics: Determine Use or Limitations Artificially Admin Nutrition: No Artifical Nutrition by Tube POLST Discussed with: Spouse/Other POLST Review Outcome: New Form Completed . Advanced Care Planning Address: POLST Pain: Mild (refuses pain medicine but experiences mild tenderness over area where mass located.) Total time 65 minutes; >50% face to face with patient and/or family, providing counselling regarding plans and recommendations, and in care coordination with his/her medical teams. I also spent an additional 65 minutes counseling for advanced care planning with the patient/the patients family/the surrogate decision maker. Palliative Brief Note Date of Service Oct 28, 2016 . Patient Identification 76 yo WMF with type II DM on insulin, history of skin cancer, hypertension in the context of B-cell lymphoma was transferred [place] [facility] after she presented to their ED s/p syncope at home. Her past medical history is significant for recent diagnosis in 2015 with B- cell non-Hodgkin's lymphoma and started on 6 cycles of R-CHOP chemotherapy. Her retroperitoneal mass showed some response initially on follow-up imaging in June 2016. Mass had interval increase on imaging done in September 2016 when she presented with lower extremity weakness due to suspected mass compression of spinal cord which prompted radiation consult. Weakness improved with decadron and she was started on radiation last week. She continues to have poor functional status with generalized weakness. Hospital Course: Her electrolyte chemistries are being adjusted with medical treatment. She has chronic leukopenia with ANC 390 and is on neutropenic precautions. She remains alert and interactive but somewhat confused at times. At night, she is impulsive and gets up to bathroom without calling for assistance. She received radiation therapy 10/27. Exam: General: patient is sitting up in hospital bed HEENT: Head AT/NC with alopecia, dry mucus membranes. Very [place] Lungs: B/L clear breath sounds. Heart: regular rate and rhythm without murmurs gallops or rubs Abdomen: right upper quadrant + for irregular hard mass [id number],slightly tender on palpation Extremities: pulses 2+ dorsalis pedis posterior tibialis and radial. Skin: warm, dry, no rashes, no prominent bruising or pigmentation changes. Psych: calm. pleasantly interactive, slightly confused Neuro cranial nerves II through XII are grossly intact,motor 5/5 equally upper and lower limbs, AxO x3. Lymph: no lymphadenopathy palpable. : no irving Lab/Diagnostics Lab and Imaging results reviewed in detail in EMR. Neyda Holliday MD Oct 28, 2016 10:28
--- NOTE | 2016-10-28 14:04 | NUR ---
Palliative care note D/A: Dr. Holliday had a 1100 FCTM with pt today and her spouse Sandeep ( [phone]). Couple would like a [facility] info visit.Able to discuss with Sandeep who indicates that he is available tomorrow, Tuesday10/29/16. The earliest time possible would be best for him. Dr. Holliday indicates that pt is planning on completing her rad trx. Rad oncology has indicated that pt will need [address] Holliday is communicating today with Rad Onc to see if sessions might be able to be compressed. Pt will not be eligible for hospice until done with Rad Onc treatments. It is possible that pt will be dc'ed while still continuing to receive her radiation treatments and that if pt/family are interested in hospice, will not be able to open for services until post dc. Have discussed with Lesley at [facility] who will confer with Yane and call this worker. P: Palliative care to continue to follow. Gracie ROSAS, [facility] Addendum: 10/28/16 at 1524 by SAAD ZHANG PC note amendment Spoke to Lesley at [facility] who notes that Yane can do info visit at 0700 on 10/29/16. Speak to pt spouse who agrees with time. He will meet Yane in pt room. Leigha CLINTON, also aware. AMELIA Addendum: 10/28/16 at 1557 by SAAD CORRAL SS PC note amendment Dr. Holliday is signing off case as of today. Discussed with MARY BETH Ahuja, clairep. AMELIA
--- NOTE | 2016-10-28 15:20 | NUR ---
TO RADIATION Portacat is saline locked. Picked up by [facility] to transport to the oncology clinic for radiation.
[2016-10-28] MEDS: 0.9% Sodium Chloride 250 ML IV SCH (16:03)
--- NOTE | 2016-10-28 16:44 | NUR ---
BACK FROM RADIATION Patient is back from radiation. Nasra cath has brisk blood draw and flushes without any problems. IVF restarted.
--- NOTE | 2016-10-28 18:16 | NUR ---
ACTIVITY Patient is alert and oriented to self. Not to place and time. Confused but answers questions appropriately at times. Dr. Mesa is aware of patients mentation during morning rounds. She denies pain. Pain medication was offered but patient stated that she will call for it if she needs it. Tolerating liquids PO and her diet well. Denies nausea. No emesis noted. Denies SOB. Patient has been ambulating in the room with SBA. Per her daughter she uses a FWW at baseline at home. Voiding without any problems. Rocael alarm is on for safety.
[2016-10-28] MEDS: Fluticasone 0.05% 15 Spray/2 Gm 16 Gm Nasal Spray NASAL SCH (20:29)
--- NOTE | 2016-10-28 22:17 | PROG NOTE ---
[address] [address] PROGRESS NOTE PATIENT: PIPO TURNER : 1940 MR#: [id number] ADMIT: 10/26/2016 JOB ID: [id number] DATE: 10/28/2016 INTERVAL HISTORY: I have spoken with Dr. Langley and with Dr. Holliday about this patient who is a 76-year-old woman with stage IIA diffuse large B-cell lymphoma, originally presenting last March with a large right lower quadrant mass and who has progressed right through Rituxan CHOP chemotherapy. Her condition is poor. She is receiving palliative radiation therapy and has malignancy related hypercalcemia, which is being treated effectively. She is being followed by the Hospitalist Service and by Palliative Care, I have counseled her earlier this week as an outpatient that the outlook is poor, but we will try to help her in terms of managing symptoms of her disease; and as long as radiation therapy can be given for palliation, we would like to continue it. Whether she can ever receive systemic chemotherapy is doubtful given her poor condition. Her diagnosis was made in March 2016 with an open biopsy of a right lower quadrant mass with a diffuse large B-cell lymphoma. She was treated with six cycles of Rituxan CHOP, but it started to grow through her last cycle of treatment with chemotherapy. She has been hospitalized previously at [facility] for pain and a rapidly enlarging mass seen on CT and MRI including electrolyte disturbances, diabetes, and lower extremity weakness as well as severe pain. That hospitalization was from September 30 through October 07, and she received some radiation therapy during that period of time. She is currently in hospital since October 26 for an episode of syncope, increasing debilitation, continued pain related to her abdominal mass, and hypercalcemia. She has been treated with hydration and steroids and Zometa for hypercalcemia, and that has improved; she is still extremely debilitated and confused. She also has a history of type 2 diabetes on insulin complicating her treatment. SUBJECTIVE: She is a little confused. She thinks she has been told that she is dying and that she will receive no further radiation, but that is not the understanding, she is continuing to receive radiation therapy but has been told that her prognosis is poor. She complains of some continued right lower quadrant pain, decreased appetite, debilitation, extreme weakness and fatigue. OBJECTIVE: Vital signs: Her vital signs show a temperature of 36.8, pulse 85, respiratory rate 17, blood pressure 137/75, pulse ox 99% on room air. Her I and O showed a p.o. intake yesterday of 1066, weight is 64.5 kg. Head and neck: Alopecia. Pupils equal, round, and reactive without icterus. Oral mucosa is pink and moist without thrush or lesions. Lymph nodes: Negative in the neck and supraclavicular areas. Chest: Clear and auscultated anteriorly and laterally. Cardiac: Rhythm is regular without murmur or peripheral edema. Abdomen: Tender with deras on the lower abdomen from the radiation sites. There is mass effect palpable in the right lower quadrant and in the left lower quadrant. Extremities: Show no deformity or tenderness. LABORATORY VALUES: White count is 1.7. She is receiving radiation but has received no chemotherapy since August. The segs are 40.7, hemoglobin 8, hematocrit 24.8, platelets 55. BUN and creatinine 18 and 1.19. Electrolytes normal. Calcium is down to 10.6 from 12.5 on admission and next calcium 5.74. Albumin is 3.1. ASSESSMENT/RECOMMENDATIONS: From an oncology standpoint, she is now receiving palliative care. Palliation can include hospice or more aggressive therapy, and she has elected to complete her radiation therapy, which I think can help her in terms of her pain. This will not make the masses go away, and I think she is too weak, at least for the time being, to receive any systemic chemotherapy. experience with Keytruda for lymphoma is interesting, but that would have to be released on compassionate use, and the patient's condition is getting to the point where she would not be able to make the trip back and forth to the treatment. Therefore, I did speak with her about adopting a supportive care role. Currently, she would like to continue radiation therapy and try to improve her ambulation and eating and other aspects of her management including pain. When hypercalcemia can be controlled more effectively, it is not certain since we will not be able to eliminate her lymphoma. Dr. Holliday's and Dr. Langley's care of this patient is greatly appreciated.
[2016-10-28] MEDS: Nystatin 100,000 Unit/mL 5 mL Suspension PO SCH ×2 (22:20→22:22)
[2016-10-29 00:21] VITALS: BP 158/72; PULSE 88; RESP 18; O2SAT 98
[2016-10-29] MEDS: 0.9% Sodium Chloride 1,000 ML IV SCH ×2 (00:30→10:19)
--- NOTE | 2016-10-29 01:48 | NUR ---
NEW MEDICATION/COUGH PT HAS WHAT APPEARS TO BE ORAL CANDIDIASIS, NOTIFIED , CHRISTIAN'D ORDER FOR NYSTATIN SWISH/SWALLOW. PT REPORTS PX IN MOUTH BUT NO OPEN LESIONS NOTED, WHITE PATCHES AND TONGUE IS COATED WITH WHITE RESIDUE. PT REC'D NYSTATIN SWISH, WHEN SHE SWALLOWED IT SHE STATES SHE "SWALLOWED WRONG AND SOME WENT DOWN THE WRONG WAY", PT BEGAN COUGHING, NON PRODUCTIVE, STATES THROAT IRRITATED. HAD INTERMITT COUGH, ABLE TO EAT AND DRINK REST OF SHIFT. LCTA, PT REPORTED ABDOMINAL PX ON RT SIDE DUE TO COUGHING, REC'D PRN TYLENOL WITH CODEINE WITH + EFFECTS.
[2016-10-29 04:27] VITALS: BP 167/77; PULSE 79; RESP 18; O2SAT 98
[2016-10-29 04:38] LABS: BASOPHILS % (AUTO) 0 % (0-3); EOSINOPHILS % (AUTO) 0 % (0-5); Mean Corpuscular Hemoglobin 31.2 pg (27.0-35.0); Mean Corpuscular Volume 96.4 fL (81-100); NEUTROPHILS % (AUTO) 50.5 % (40-74); Platelet Count 58 bil/L (150-400)
--- NOTE | 2016-10-29 07:10 | PCM.PNMED ---
Subjective Date of Service Oct 29, 2016 Subjective no acute overnight events - thrush noted and nystatin ordered. moderate R sided abdom pain noted with cough but pain controlled. no reports of sob/cp. family conf with spouse and palliative care today Exam Vital Signs Vital Sign - Last Date Time Temp Pulse Resp B/P Pulse Ox O2 Delivery O2 Flow Rate FiO2 10/29/16 04:27 36.7 79 18 167/77 98 Room Air Intake and Output 10/28/16 10/28/16 10/29/16 Cumulative From/Thru 15:00 23:00 07:00 10/26/16 12:20 - 10/29/16 06:10 Intake Total 1346 ml 2657 ml 28684 ml Output Total 843 ml 2227 ml 5051 ml Balance 503 ml 430 ml 6244 ml Intake Oral 600 ml 1613 ml 3779 ml IV Total 746 ml 1044 ml 7516 ml Output Urine Total 843 ml 2227 ml 5051 ml # Bowel Movements 3 Exam Gen. patient is lying comfortably in hospital bed HEENT: mod dry mm, NCAT Lungs clear to auscultation bilaterally Heart regular rate and rhythm without murmurs gallops or rubs Abdomen right upper quadrant irregular hard mass [id number] , slightly tender on palpation Extremities pulses are present dorsalis pedis posterior tibialis and radial. Skin is warm and dry there are no rashes, Psych alert and oriented to person place and time Neuro cranial nerves II through XII are grossly intact,motor 5/5 all over Lymph: There is no lymphadenopathy appreciated in the cervical supra infraclavicular regions : no irving IVs and Medications Medications Reviewed: Medications were reviewed in detail Lab and Diagnostics Result Diagram: 10/29/16 04310/29/16 0430 Assessment & Plan 76 year-old lady with type II DM on insulin, history of skin cancer, hypertension, B-cell lymphoma was transferred from [facility] after she presented with an episode of syncope # Episode of Syncope, acute,poa -Due to hypercalcemia and dehydration -troponin negative.no chest pain or dyspnea,PE unlikley # Malignant hypercalcemia, acute on chronic,poa -Initial ca 13.1-->mildly improving -gave 1L NS bolus ,continue 150ml/h -gave Zometa 4mgx1 -started prednisone [address] Murillo recommendation -Discontinued hydrochlorothiazide (10/27) which is also contributing, will replace with amlodipine 5mg 10/29 # B-cell lymphoma, chronic -Interval increment of mass after completed 6 cycle R-CHOP. Currently on radiation -> plan to cont pall radiation, no chemo -rad tx continues -spoke with Dr Murillo ,she has poor prognosis, pall care consulted - appreciate discussion with re goals today, pall care signed off. no hospice qualif until rad tx completed # recent bilateral lower extremity weakness due to retroperitoneal mass, resolved -Symptom improved after initiation of decadron on prior admission . #MIGUEL ,poa, improved -Initial cr 1.16 -IV fluids as above #Hypomagnesemia, acute on chronic, resolved -Initial Magnesium 1.4, repeleted and improved #Leukopenia, chronic -ANC 390 -Continue to monitor, neutropenic precautions -No sign of infection. Afebrile. Monitor #Thrombocytopenia, chronic -Platelets 67-->58 -Lovenox 40 mg prophylaxis. will hold if drops below 50 #IDDM -Continue home insulin : Lantus 10 units in daily -high correction Sliding-scale -anticipate higher insulin requirement given initiation of prednisone #Hypertension, chronic -Hold hydrochlorothiazide names her as POA Disposition: Discharge in 1-2 days Pain Evaluation: Adequate Pain Control GI Prophylaxis: Proton Pump Inhibitor VTE Prophylaxis: Sub-Q Enoxaparin VTE Mechanical Devices: Intermittant Pneumatic CD Resuscitation Status: DNR/DNI:Do Not Resuscitate/Intubate Time spent 35 minutes spent with eval and mgmt Danny Mesa DO Oct 29, 2016 07:10
[2016-10-29 08:00] VITALS: PULSE 82
[2016-10-29] MEDS: Nystatin 100,000 Unit/mL 5 mL Suspension PO SCH ×2 (08:30→13:07)
[2016-10-29] MEDS: predniSONE 20 mg Tablet PO SCH (08:55)
[2016-10-29] MEDS: Insulin LISPRO 300 Unit/3 mL Inj SUBQ SCH ×2 (08:55→13:07)
[2016-10-29] MEDS: Pantoprazole 40 mg ER24 Tablet PO SCH (08:56)
[2016-10-29] MEDS: Insulin GLARgine 100 Unit/mL Syringe SUBQ SCH (08:57)
[2016-10-29 09:25] VITALS: BP 147/69; PULSE 91; RESP 16; O2SAT 95
--- NOTE | 2016-10-29 13:27 | PCM.DIMED ---
Discharge Instructions Date of Service Oct 29, 2016 Dates of Hospitalization Oct 26, 2016 at 11:59 Discharge Diagnosis Discharge Diagnosis Syncope related to hypercalcemia and dehydration B-cell lymphoma, chronic Hypertension Type II diabetes Leukopenia/total cytopenia secondary to chemotherapy Acute kidney injury secondary to prerenal state, improved Medication Instructions Please take a bowel regimen that softens her stool with your pain medicine as these medications can cause constipation Diet No restrictions Activity Other (home health visiting nursing) Call your provider Fever or Chills, Shortness of breath, Weakness (unilateral) Patient Instructions Mrs. Dhillon, it was a pleasure meeting you. You are going to be discharged to the comfortable setting of her family environment and to continue radiation therapy. Please call for a follow-up appointment with the oncologist to discuss her radiation therapy duration. I have started a medication for your blood pressure called amlodipine. If blood pressure is moderately elevated but if he chooses not to take his medication and wanted to focus on her comfort goals at home that is understandable Follow-up plan Please follow-up with Dr. Rizzo in 1-2 weeks Follow-up Provider: Blaine Rizzo MD Follow-up with PCP in: 2 weeks Provider: Robert Murillo MD Follow-up in: 1 week Danny Mesa DO Oct 29, 2016 13:27
[2016-10-29] MEDS ORDERED: AMLO5TAB2 PO (13:33)
[2016-10-29] MEDS ORDERED: NYST1000 PO (13:33)
[2016-10-29] MEDS ORDERED: PRED-508 PO (13:33)
--- NOTE | 2016-10-29 13:41 | PCM.DC.MED ---
Discharge Summary Date of Service Oct 29, 2016 Dates of Hospitalization Date of Hospital Admission Oct 26, 2016 at 11:59 Date of Discharge: Oct 29, 2016 Providers: Admitting Physician: Earl Langley MD Primary Care Physician: Blaine Rizzo MD Attending Physician: Earl Langley MD Diagnosis at Time of Discharge Diagnosis at Time of Discharge Syncope related to hypercalcemia and dehydration B-cell lymphoma, chronic Hypertension Type II diabetes Leukopenia/total cytopenia secondary to chemotherapy Acute kidney injury secondary to prerenal state, improved Consultations Oncology Brief History History of present illness as per admitting physician 76 year-old lady with type II DM on insulin, history of skin cancer, hypertension, B-cell lymphoma was transferred from [facility] after she presented there after an episode of syncope. Patient states she was sitting in bathroom when she passed out. Her who was helping her, called 911 and she was taken to [facility]. Episode lasted for a few minutes. She states she felt lightheaded prior to episode. Denies hitting head. Denies fever. Denies diarrhea. Denies cough. Continues to have right upper quadrant abdominal swelling with some pain. [facility] emergency room workup revealed hypercalcemia of 13.1. One liter NS given and transferred to [facility] where she was supposed to have radiation therapy due 10/26. Past Medical History significant for recent diagnosis in 2015 with B-cell non- Hodgkin's lymphoma and started on 6 cycles of R-CHOP chemotherapy. Her retroperitoneal mass showed some response initially on follow-up imaging in June 2016. Mass had interval increase on imaging done in September 2016 when she presented with lower extremity weakness due to suspected mass compression of spinal cord which prompted radiation consult. Weakness improved on decadron and she was started on radiation last week. She continues to have poor functional status with generalized weakness. Hospital Course 76 year-old lady with type II DM on insulin, history of skin cancer, hypertension, B-cell lymphoma was transferred from [facility] after she presented with an episode of syncope # Episode of Syncope, acute,poa -Due to hypercalcemia and dehydration -troponin negative.no chest pain or dyspnea,PE unlikley, patient be discharged due to poor prognosis and patient preference to return to family for quality of life. Patient is not hospice right now she continues on radiation therapy but duration of radiation therapy should be discussed further with oncology. # Malignant hypercalcemia, acute on chronic,poa -Initial ca 13.1-->mildly improving -gave 1L NS bolus ,continue 150ml/h -gave Zometa 4mgx1 -started prednisone [address] Murillo recommendation during hospitalization and this will be weaned at discharge until follow-up with oncology for further recommendations -Discontinued hydrochlorothiazide (10/27) which is also contributing, will replace with amlodipine 5mg 10/29 # B-cell lymphoma, chronic -Interval increment of mass after completed 6 cycle R-CHOP. Currently on radiation -> plan to cont pall radiation, no chemo -rad tx continues -Per Dr Murillo ,she has poor prognosis, pall care consulted during hospitalization - appreciate discussion with re goals today, pall care signed off. no hospice qualif until rad tx completed -Patient will be discharged today after returning to [facility] from her radiation therapy # recent bilateral lower extremity weakness due to retroperitoneal mass, resolved -Symptom improved after initiation of decadron on prior admission . #MIGUEL ,poa, improved likely prerenal -Initial cr 1.16 -IV fluids as above #Hypomagnesemia, acute on chronic, resolved -Initial Magnesium 1.4, repeleted and improved #Leukopenia, chronic -ANC 390 -Continue to monitor, neutropenic precautions -No sign of infection. Afebrile. Monitor #Thrombocytopenia, chronic -Platelets 67-->58 -Lovenox 40 mg prophylaxis. will hold if drops below 50 #IDDM -Continue home insulin : Lantus 10 units in daily -high correction Sliding-scale while hospitalized #Hypertension, chronic -Hold hydrochlorothiazide, stopped at discharge and replaced with amlodipine names her as POA Disposition: Discharged today later this afternoon after radiation Exam Vital Signs (Last) Date Time Temp Pulse Resp B/P Pulse Ox O2 Delivery O2 Flow Rate FiO2 10/29/16 09:25 36.8 91 16 147/69 95 Room Air Exam Gen. patient is lying comfortably in hospital bed HEENT: mod dry mm, NCAT Lungs clear to auscultation bilaterally Heart regular rate and rhythm without murmurs gallops or rubs Abdomen right upper quadrant irregular hard mass [id number] , slightly tender on palpation Extremities pulses are present dorsalis pedis posterior tibialis and radial. Skin is warm and dry there are no rashes, Psych alert and oriented to person place and time Neuro cranial nerves II through XII are grossly intact,motor 5/5 all over Lymph: There is no lymphadenopathy appreciated in the cervical supra infraclavicular regions : no irving Test 10/26/16 13:20 10/26/16 20:29 10/27/16 05:04 10/28/16 09:20 Troponin T < 0.010ug/L (0.0-0.011) Procalcitonin 0.15ng/mL (0.00-0.08) Hold Kyle Top Tube Received (Received) Urine Color Yellow (YELLOW) Urine Appearance Clear (CLEAR,HAZY) Urine pH 5.5 (5.0-8.0) Urine Specific [place] 1.025 (1.003-1.035) Urine Protein Negativemg/dL (NEG,TRACE) Urine Glucose (UA) Negativemg/dL (NEGATIVE) Urine Ketones Negativemg/dL (NEGATIVE) Urine Occult Blood Negative (NEGATIVE) Urine Nitrite Negative (NEGATIVE) Urine Bilirubin Negative (NEGATIVE) Urine Urobilinogen Normalmg/dL (NORMAL) Urine Leukocyte Esterase Negative (NEGATIVE) Urine RBC 0-2/hpf (0-2) Urine WBC 0-5/hpf (0-5) Urine Epithelial Cells Few/hpf (NONE-MOD) Urine Crystals None seen (NONE SEEN) Urine Bacteria Few/hpf (NONE-FEW) Urine Hyaline Casts None/lpf (NONE) Urine Granular Casts None seen (NONE SEEN) Urine Waxy Casts None seen (NONE SEEN) Urine Red Blood Cell Casts None seen (NONE SEEN) Urine White Blood Cell Casts None seen (NONE SEEN) Urine Mucus None seen (None Seen) Urine Trichomonas None seen (NONE SEEN) Urine Yeast None (NONE SEEN) Urinalysis Comment None Urine Culture Reflexed Not indicated Nucleated Red Blood Cells 2/100 WBC (0-24) Phosphorus Level 2.5mg/dL (2.5-4.9) Magnesium Level 2.0mg/dL (1.6-2.6) Ionized Calcium (Calculated) 5.74mg/dL (3.5-5.2) Test 10/29/16 04:30 White Blood Count 2.1th/mm3 (3.8-10.1) Red Blood Count 2.53mil/mm3 (3.90-5.20) Hemoglobin 7.9g/dL (12.0-15.6) Hematocrit 24.4% (35.0-46.0) Mean Corpuscular Volume 96.4fL (81-100) Mean Corpuscular Hemoglobin 31.2pg (27.0-35.0) Mean Corpuscular Hemoglobin Concent 32.4% (32.0-37.0) Red Cell Distribution Width 16.0% (12.3-15.4) Platelet Count 58bil/L (150-400) Neutrophils (%) (Auto) 50.5% (40-74) Lymphocytes (%) (Auto) 33.5% (14-46) Monocytes (%) (Auto) 16.0% (4-12) Eosinophils (%) (Auto) 0% (0-5) Basophils (%) (Auto) 0% (0-3) Sodium Level 142mEq/L (134-144) Potassium Level 3.8mEq/L (3.5-5.2) Chloride Level 106mEq/L (97-108) Carbon Dioxide Level 20mmol/L (18-29) Blood Urea Nitrogen 23mg/dL (8-27) Creatinine 1.18mg/dL (0.57-1.00) Estimat Glomerular Filtration Rate 64mL/min (>59) Glucose Level 189mg/dL (60-99) Calcium Level 11.3mg/dL (8.5-10.1) Total Bilirubin 0.2mg/dL (0.0-1.2) Aspartate Amino Transf (AST/SGOT) 18U/L (0-50) Alanine Aminotransferase (ALT/SGPT) 13U/L (0-32) Alkaline Phosphatase 39U/L (25-165) Total Protein 5.6g/dL (6.4-8.4) Albumin 3.2g/dL (3.4-5.0) Discharge Medications Discharge Medications Allopurinol (Allopurinol) 300 Mg Tablet 300 MG PO DAILY (Reported) Amlodipine (Amlodipine) 5 Mg Tablet 5 MG PO DAILY Prescribed by: HIRA MARX DO Citalopram (Citalopram) 10 Mg Tablet 10 MG PO DAILY (Reported) Dexamethasone (Dexamethasone) 1 Mg Tab 2 MG PO TID Prescribed by: CARLOTTA JARRETT MD Fluticasone Propionate (Fluticasone Propionate Nasal) 16 Gm [place].susp 2 SPRAY NS HS (Reported) Insulin Glargine (Lantus U100 Insulin Vial) 100 Unit/Ml Vial 10 UNIT SUBQ QAM ( Reported) Magnesium Oxide (Magnesium Oxide) 400 Mg Tablet 400 MG PO BID (Reported) Nystatin (Nystatin) 100,000 Unit/1 Ml Oral.susp 500,000 UNIT PO PCHS Prescribed by: HIRA MARX DO Pantoprazole (Pantoprazole DR) 40 Mg Tablet.dr 40 MG PO QAM (Reported) Prednisone (Deltasone) 20 Mg Tablet 40 MG PO DAILY Prescribed by: HIRA MARX DO Rosuvastatin Calcium (Crestor) 10 Mg Tablet 10 MG PO HS (Reported) As needed Acetaminophen/Codeine 300-30mg (Acetaminophen/Codeine 300-30mg) 1 Each Tablet 1- 2 TABLET PO Q4H PRN PRN Pain (Reported) Insulin Human Lispro (HumaLOG U100 Insulin Vial) 100 Unit/Ml Unit 2-8 UNIT SUBQ ACHS PRN PRN HYPERGLYCEMIA (Reported) SLIDING SCALE Polyethylene Glycol 3350 (Miralax) 17 Gm Powd.pack 17 GM PO DAILY PRN PRN For Constipation (Reported) Additional med instructions Please take a bowel regimen that softens her stool with your pain medicine as these medications can cause constipation Followup Plan Follow-up plan Please follow-up with Dr. Rizzo in 1-2 weeks Discharge Diet: No restrictions Discharge Activity: Other (home health visiting nursing) Patient Instructions Mrs. Dhillon, it was a pleasure meeting you. You are going to be discharged to the comfortable setting of her family environment and to continue radiation therapy. Please call for a follow-up appointment with the oncologist to discuss her radiation therapy duration. I have started a medication for your blood pressure called amlodipine. If blood pressure is moderately elevated but if he chooses not to take his medication and wanted to focus on her comfort goals at home that is understandable Follow-up Provider: Blaine Rizzo MD Follow-up with PCP in: 2 weeks Provider: Robert Murillo MD Follow-up in: 1 week Time spent 45 minutes spelled with evaluation management including discharge. Greater than 50% that time was spent [id number] in counseling Attending Statement Given this patient's poor prognosis, which has been clearly verbalized to patient and family during this admission, there may be a future decision to withhold radiation therapy and allow this patient to probably enroll in hospice when she is ready. copies to: Robert Murillo MD; Blaine Rizzo MD, David DO Oct 29, 2016 13:41
--- NOTE | 2016-10-29 15:21 | NUR ---
TO RADIATION Patient was transported to radiation via [facility].
--- NOTE | 2016-10-29 16:00 | NUR ---
BACK FROM RADIATION Patient is back from radiation. Orders to D/C received.
[2016-10-29 16:52] VITALS: BP 164/75; PULSE 87; RESP 18; O2SAT 100
--- NOTE | 2016-10-29 17:30 | NUR ---
DISCHARGE Patient has been verbalizing: "I want to just go home and and spend time with my family." Patient continues to be confused at times but answers most questions appropriately. She denies pain. Tolerating liquids PO and her diet well. Denies nausea. No emesis noted. Denies SOB. Patient has been ambulating with SBA in the room. Per her daughter patient has a FWW at home. Per her she will have someone at home at all times to assist with her care. Discharge orders received. Nasra cath was deaccessed by IVT. Discharge instructions was gone through with her , who is her primary manager intensive care since patient has some memory problems. He verbalized understanding. Discharged to home with her and daughter and all her personal belongings. [facility] will be set-up tomorrow for the patient per SS and they will call Alejandro at home. He is agreeable to this. (Copy of d/c is in the chart). -Steff has spoken to Dundas several times over the phone and she also spoke X 2 to Dundas and the patients daughter Rowena RE: Discharge/Goals of care, hospice, etc. since they are still insterested to pursue radiation and hospice cannot open unless she is off radiation. Per her he understands all of this issues and has all his questions answered and he is agreeable to the patient discharging to home. (Pls. refer to SS notes).
--- NOTE | 2016-10-29 17:46 | NUR ---
Social Work- Readiness for Discharge Data: EMR reviewed. Pt is on day 3 of hospitalization for acute hypercalcemia per H&P. Hospice Infovisit completed at noon. Pt continues to receive palliative radiation therapy. Pt to receive radiation today at 3 pm. TAMIKO spoke with Joselin from [facility] regarding pt's infovisit, SW informed [facility] that pt is still receiving palliative radiation. TAMIKO spoke with pt's Sandeep (cell: [phone]) and daughter regarding their wishes and the difference between palliative radiation and hospice. Sandeep and daughter Patricia clearly state that they do not want to elect hospice at this time and will continue to pursue palliative radiation. TAMIKO updated [facility], left message for Joselin regarding this (as it was after hours). TAMIKO updated MD. Pt and family state they have [facility] information to follow up after discharge. Pt to discharge home with family as caregivers and to transport via POV. SW will continue to follow. Assessment: Pt who is continuing palliative radiation. Plan: Pt to discharge home with to transport via POV. Pt to continue palliative radiation, follow up with Hospice when ready. SW will continue to follow. Addendum: 10/29/16 at 1811 by KATARINA WRIGHT SS As SW was leaving the floor, family requesting RN for pt at discharge. SW to follow up regarding this. has no preference for company, SW will refer to rotating calendar to make referral. Leigha Wright, METHODS ENGINEER
== END 2016-10-29 17:30 | disposition home health service (06) | DRG 640 ==
LOC: OSC 11:59
PROVIDERS: ADMIT Internal Medicine; ATTEND Internal Medicine
DX: E83.52 Hypercalcemia (principal); D61.810 Antineoplastic chemotherapy induced pancytopenia; C85.90 Non-Hodgkin lymphoma, unspecified, unspecified site; N17.9 Acute kidney failure, unspecified; E78.5 Hyperlipidemia, unspecified; E11.9 Type 2 diabetes mellitus without complications; E86.0 Dehydration; E83.42 Hypomagnesemia; Z79.4 Long term (current) use of insulin; I10 Essential (primary) hypertension; Z66 Do not resuscitate